=== PATIENT | female | born 1940 | race Caucasian/White ===

== ENCOUNTER 2016-08-28 17:31 | Inpatient (IN) | payer OTHER, MEDICARE ==
[~2016-08-28] VITALS: Ht 165.1 cm; Wt 70.5 kg
[~2016-08-28 17:31] MED LIST: /PANT40TA OR; ACET65TA OR; AMBI10TA OR; BACITAB PO; CELE40TA OR; DOXY100T OR; FLAG250T PO; FLAG500T PO; FLEXERIL PO; HYDR-3719 PO; LEVA750T7 PO; LEXA1TAB2 PO; LUNE2TAB23 PO; METO50TA7 PO; SIMV20TA2 PO; TRAM50TA2 OR; VICO5TAB OR; ZOCO40TA OR
[2016-08-28] MEDS ORDERED: NALOXONE INJ 0.4 MG/1 ML VIAL (J2310) IV STA (17:47)
[2016-08-28 18:22] LABS: BASO # 0.1 K/mm3 (0.0-0.2); BASO % 0.6 % (0.0-1.0); EOS # 0.3 K/mm3 (0.0-0.50); LARGE UNSTAINED CELL # 0.2 K/mm3 (0.0-0.4); LARGE UNSTAINED CELL % 1.8 % (0.0-4.0); LYMPH # 3.1 K/mm3 (1.5-4.5); LYMPH % 28.1 % (24.0-44.0); MEAN CORPUSCULAR HEMOGLOBIN 23.3 pg (27.0-33.0); MEAN CORPUSCULAR HGB CONC 30.5 g/dl (32.0-36.5); MEAN CORPUSCULAR VOLUME 76.2 fl (80.0-96.0); MONO # 0.8 K/mm3 (0.0-0.8); MONO % 7.9 % (0.0-5.0); NEUTROPHILS # 6.1 K/mm3 (1.8-7.7); NEUTROPHILS % 58.6 % (36.0-66.0); PLATELET COUNT, AUTOMATED 427 k/mm3 (150-450); WHITE BLOOD COUNT 10.4 K/mm3 (4.0-10.0)
[2016-08-28 18:24] LABS: ADD MORPHOLOGY? YES
[2016-08-28 18:25] LABS: ABG BASE EXCESS 0.6 (-2.0-2.0); ABG HCO3 24.6 MEQ/L (22.0-26.0); ABG PARTIAL PRESSURE O2 82.3 mmHg (75.0-100.0); ABG TOTAL CO2 25.8 MEQ/L (23.0-31.0); ABG pH (ARTERIAL) 7.441 UNITS (7.350-7.450)
[2016-08-28 18:30] LABS: METHADONE URINE NEGATIVE (NEGATIVE)
[2016-08-28] MEDS ORDERED: LORazepam 2 MG/ML VIAL (J2060) IV STA ×4 (18:35→19:45)
[2016-08-28] MEDS ORDERED: LORazepam 2 MG/ML VIAL (J2060) As Ordered ONE (18:36)
[2016-08-28 18:39] LABS: ALBUMIN 3.3 GM/DL (3.2-5.2); ALBUMIN/GLOBULIN RATIO 0.89 (1.00-1.93); ALKALINE PHOSPHATASE 80 U/L (45-117); ALT/SGPT 24 U/L (12-78); ANION GAP 5 MEQ/L (8-16); AST/SGOT 18 U/L (15-37); BILIRUBIN,DIRECT < 0.1 MG/DL (0.0-0.2); BILIRUBIN,TOTAL 0.2 MG/DL (0.2-1.0); BLOOD UREA NITROGEN 13 MG/DL (7-18); CALCIUM LEVEL 8.4 MG/DL (8.8-10.2); CARBON DIOXIDE LEVEL 29 MEQ/L (21-32); CHLORIDE LEVEL 106 MEQ/L (98-107); CREATININE FOR GFR 0.75 MG/DL (0.55-1.02); GLOMERULAR FILTRATION RATE > 60.0 (>39); GLUCOSE, FASTING 116 MG/DL (83-110); POTASSIUM SERUM 4.4 MEQ/L (3.5-5.1); SODIUM LEVEL 140 MEQ/L (136-145)
[2016-08-28] MEDS ORDERED: NS 1,000 ML IV ONE (19:00)
[2016-08-28 19:02] LABS: ANISOCYTOSIS 1+; HYPOCHROMASIA 1+; MICROCYTOSIS 1+
--- NOTE | 2016-08-28 19:10 | REPUSA ---
HISTORY: ALTERED MENTAL STATUS. Comparison is made to previous head CT examination dated 09/03/10. TECHNIQUE: Axial CT imaging of brain without contrast. DLP= 894.4 mGy-cm. FINDINGS: Ventricles and sulci are slightly prominent but within normal limits for this age group. T here is no evidence of intracranial mass, hemorrhage, mass effect, acute infarct, or abnormal extra-a xial fluid collection. No skull fracture or destructive bony lesion is seen at the skull base. IMPRESSION: Negative noncontrast head CT examination for this age group. Clinical correlation and followup imaging may be warranted as clinically indicated.
[2016-08-28] MEDS ORDERED: fentaNYL 100 MCG/2 ML INJECTION (J3010) IV ONE (19:30)
[2016-08-28] MEDS: HEPARIN SOD (PORCINE) 5000 UNITS/ML VIAL SC SCH (21:00)
[2016-08-28] MEDS ORDERED: ESZO1TAB3 PO (22:15)
[2016-08-28] MEDS ORDERED: ONDANSETRON 4MG/2ML VIAL (J2405) IV PRN (22:15)
[2016-08-28] MEDS ORDERED: METO1TAB32 PO (22:15)
[2016-08-28] MEDS ORDERED: NEXI40CA PO (22:17)
[2016-08-28] MEDS ORDERED: AMIT25TA PO (22:17)
[2016-08-28] MEDS ORDERED: AZEL0.1S3 (22:17)
[2016-08-28 22:21] LABS: INR 0.81
[2016-08-28 22:26] LABS: RETICULOCYTE ABSOLUTE ADVIA212 62 x10(9)/L (17-77)
[2016-08-28] MEDS ORDERED: ANEXSIA, NORCO 7.5MG/325MG TABLET(HYDROCODONE/APAP) PO PRN (22:30)
[2016-08-28 22:37] LABS: FERRITIN 5 NG/ML (8-252); PERCENT SATURATION 10.7 % (13.2-37.4); TOTAL IRON BINDING CAPACITY 440 UG/DL (250-450)
[2016-08-28 22:39] LABS: REASON FOR REVIEW ANEMIA / RBC MORPH
[2016-08-28] MEDS ORDERED: ISOVUE-370 76% 100ML VIAL (Q9967) As Ordered ONE (22:41)
[2016-08-28] MEDS ORDERED: MULTIVITAMIN -ADULT INJECTION 10 ML, THIAMINE INJection 100 MG, FOLIC ACID 1 MG in NS 1... IV ONE (23:00)
--- NOTE | 2016-08-28 23:40 | REPUSA ---
CT of the abdomen and pelvis without contrast Clinical statement: Pain. Technique: Multiple axial CT images were obtained from the base of the lungs to the floor of the pelv is utilizing 5 mm axial slices without administration of contrast. Coronal and sagittal reconstructio ns were also obtained. Comparison: 12/20/2014. Findings: Chest: The visualized lung bases are clear. Abdomen: The kidneys are normal in size bilaterally. There are multiple bilateral simple renal cysts. There is no evidence of hydronephrosis or nephrolithiasis. Small cysts are seen within the liver. Th e liver, spleen, pancreas, and adrenal glands are otherwise unremarkable. The aorta demonstrates norm al caliber and contour. There is no abdominal lymphadenopathy or ascites. Pelvis: The bowel is unremarkable, with no obstructive or inflammatory changes. The urinary bladder i s within normal limits. There is no pelvic lymphadenopathy or ascites. The other pelvic structures ap pear unremarkable. Bones: There are no suspicious osseous abnormalities seen. Levoscoliosis is appreciated. There is a c hronic anterior compression fracture T12. There is moderately severe degenerative disc disease at L2/ L3 and L5/S1. Impression: 1. No acute findings to explain the patient's pain. 2. Simple cyst within the kidneys bilaterally as well as the liver. 3. No obstructive or inflammatory bowel changes. 4. Stable chronic anterior compression fracture of T12. 5. Stable scoliosis a multilevel degenerative disc disease.
[2016-08-28] MEDS: LACTULOSE 20 GM/30 ML SYRUP UD PO SCH (23:55)
[2016-08-29] VITALS (7 sets, daily range): BP systolic 134–148; BP diastolic 66–98; O2SAT 94
--- NOTE | 2016-08-29 00:34 | HPE ---
DATE OF ADMISSION: 08/28/2016 PRIMARY CARE PROVIDER: Gwyn Medina MD. CHIEF COMPLAINT: Altered mental status. HISTORY OF PRESENT ILLNESS: This is a 76-year-old female patient with underlying medical history of hypertension, dyslipidemia, kidney stones, diverticulitis requiring colon resection, chronic back pain, depression, previous opiate dependence with also unintentional opioid overdose with CO2 retention in 2010 requiring intensive care unit (ICU) stay and intubation. Patient was found earlier around noontime by family, the patient's son. 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 Found by the son to be disoriented with slurred speech. As per son, patient occasionally has problem taking patient's medication. Has been taking a lot of sleep aids including Benadryl and [id number]-[id number] medication, as well as Percocet. Subsequently, patient was brought to the hospital. Last time patient's son saw the patient was on , which she was completely normal and patient worked on Tuesday. Subsequently, the patient was brought to the emergency room. Patient is alert and oriented times two in the emergency room. Initially given Narcan with worsening agitation. Subsequently, given Ativan, fentanyl and Valium with improvement. Patient is restless in the emergency room. Poison Control was contacted by emergency room provider, recommending benzodiazepine and keeping the patient for close monitoring. Subsequently, request for admission was made by emergency room provider for observation overnight. Family denies any alcohol abuse, any liver problems, kidney problems. Denies history of recreational drug use. ALLERGIES: CODEINE, PENICILLIN, and PENICILLIN CROSS REACTORS. PAST MEDICAL HISTORY: 1. Hypertension. 2. Dyslipidemia. 3. Kidney stones. 4. Diverticulitis requiring colon resection. 5. Chronic back pain. 6. Depression. 7. Previous opioid dependence. 8. CO2 retention with intubation 2010. PAST SURGICAL HISTORY: 1. Colon resection secondary to diverticulitis. 2. Cholecystectomy. 3. Back surgery. SOCIAL HISTORY: Patient does not drink or use illicit drugs. 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 Patient does not smoke. FAMILY HISTORY: Father with chronic obstructive pulmonary disease (COPD) and smoker. Sister with colon cancer. Patient recently had a colonoscopy. REVIEW OF SYSTEMS: 11-point review of systems negative except for reported some hip pain, which as per family has been chronic. Otherwise, patient denies any chest pain, pressure or discomfort. All other review of systems is negative, but review of systems is limited secondary to patient's mental status. HOME MEDICATION: - acetaminophen/hydrocodone 10/325 every 4 hours as needed - Lexapro 15 mg by mouth daily - Lunesta 10 mg by mouth nightly - Bacid two tablets by mouth twice a day - Levaquin 750 mg by mouth daily - metoprolol 50 mg by mouth daily - Zocor 20 mg by mouth every evening PHYSICAL EXAMINATION: VITAL SIGNS: Temperature 99, pulse 86, respirations 18, blood pressure 151/76, pulse oximetry 92% on room air. GENERAL: Patient alert and oriented times two, knows that she is at a hospital, knows her name, does not know what year it is. Follows simple commands, restless. HEENT: Normocephalic, atraumatic. PULMONARY: Bilaterally clear to auscultation. CARDIAC: Regular S1, S2. ABDOMEN: Obese, soft, nontender. No rebound. No guarding. EXTREMITIES: No clubbing, cyanosis or edema. NEUROLOGIC: Able to move all four extremities. Cranial nerves II-XII grossly intact. Seems to walk with a limp. LABORATORY: WBC 10.4, hemoglobin and hematocrit 8.7/28.6, platelets 427. Chemistry: Sodium 140, potassium 4.4, chloride 106, bicarbonate 29, BUN 13, creatinine 0.75. Lactic acid 0.9, ammonia level 74. TSH 1.72. Toxicology positive for opioids. Negative for alcohol, acetaminophen or salicylate. Urine toxicology negative. Colonoscopy done 2016 and esophagogastroduodenoscopy (EGD) done in 2016. Colonoscopy negative. EGD shows mild benign appearing esophageal stenosis, small hiatal hernia. ASSESSMENT AND PLAN: This is a 76-year-old female patient with underlying medical history of hypertension, dyslipidemia, kidney stones, diverticulitis requiring colonic resection, chronic back pain, depression, previous opioid dependence with CO2 retention, intubation secondary to opioid overdose 2010, admitted with altered mental status secondary likely to unintentional overdose. 1. Encephalopathy likely secondary to unintentional overdose. possible percoset vs Benadryl vs Lunesta Will monitor the patient overnight. Intravenous (IV) fluids. Valium as needed. EKG is appreciated to be sinus rhythm at 87, QTc 365. Followup telemetry. Neurologic checks. Sitter is at the bedside. Possible alternative etiology elevated ammonia level. Will give lactulose. Repeat ammonia level in the morning. Will keep the patient on Valium as needed. 2. Hypertension. Continue current medication. Monitor blood pressure. 3. Anemia. Patient with macrocytic anemia. Last year patient had normal esophagogastroduodenoscopy (EGD) and colonoscopy. Followup fecal occult. Followup anemia workup including iron studies, B12, folic acid, reticulocyte count, and peripheral smear. Transfuse as needed. Followup orthostatic vital signs. 4. Dyslipidemia. Continue statin. 5. History of kidney stones. Urinalysis appreciated. 6. Hip pain. Followup x-ray of the hip. 7. History of diverticulitis. Supportive care. Continue to monitor. 8. Depression. Continue current medication. Patient likely noncompliant given patient's urine toxicology is negative for tricyclics. The patient is supposed to be on that at home. 9. History of opioid dependence. Supportive care. Continue to monitor. Continue [place] as needed. 10. Deep venous thrombosis (DVT) prophylaxis. Heparin subcutaneously. DISPOSITION PLANNING: Pending clinical improvement. Physical therapy has been ordered. MTDD
[2016-08-29] MEDS: LACTULOSE 20 GM/30 ML SYRUP UD PO SCH ×4 (05:49→22:00)
[2016-08-29 06:21] LABS: MEAN CORPUSCULAR HEMOGLOBIN 22.6 pg (27.0-33.0); MEAN CORPUSCULAR HGB CONC 29.7 g/dl (32.0-36.5); MEAN CORPUSCULAR VOLUME 76.2 fl (80.0-96.0); RED CELL DISTRIBUTION WIDTH 17.1 % (11.5-14.5); WHITE BLOOD COUNT 13.9 K/mm3 (4.0-10.0)
[2016-08-29 06:43] LABS: ALBUMIN 3.5 GM/DL (3.2-5.2); ALBUMIN/GLOBULIN RATIO 0.83 (1.00-1.93); ALKALINE PHOSPHATASE 80 U/L (45-117); ALT/SGPT 23 U/L (12-78); ANION GAP 6 MEQ/L (8-16); AST/SGOT 23 U/L (15-37); BILIRUBIN,TOTAL 0.3 MG/DL (0.2-1.0); BLOOD UREA NITROGEN 8 MG/DL (7-18); CALCIUM LEVEL 8.6 MG/DL (8.8-10.2); CARBON DIOXIDE LEVEL 28 MEQ/L (21-32); CHLORIDE LEVEL 105 MEQ/L (98-107); CREATININE FOR GFR 0.66 MG/DL (0.55-1.02); GLOMERULAR FILTRATION RATE > 60.0 (>39); GLUCOSE, FASTING 99 MG/DL (83-110); POTASSIUM SERUM 3.8 MEQ/L (3.5-5.1); SODIUM LEVEL 139 MEQ/L (136-145); TOTAL PROTEIN 7.7 GM/DL (6.4-8.2)
--- NOTE | 2016-08-29 06:46 | ECGEPIP ---
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
--- NOTE | 2016-08-29 07:32 | REP ---
AP pelvis and bilateral hips: AP pelvis single view: Comparison is 10/13/2004. There is a fracture of the left ischium. Sacroiliac articulations and hip articulations are unremarkable. There is a surgical staple ring in the midline, not present previously. There is lumbar scoliosis convex left, unchanged. Impression: Left ischium fracture. Right hip two views: There is no fracture or dislocation. Mineralization and joint space are normal. There are calcifications or foreign bodies. Impression: Negative right hip. Left hip two views: There is a fracture of the left ischium, nondisplaced. No other fracture is identified. There is no dislocation. Mineralization is normal. No calcifications or foreign bodies. Impression: Left ischium, nondisplaced fracture. Signed by Dandre Santos MD 08/29/2016 07:23 A
[2016-08-29] MEDS: ASCORBIC ACID 250 MG TAB PO SCH ×2 (07:56→21:53)
[2016-08-29] MEDS: FERROUS SULFATE 325MG TAB PO SCH ×2 (07:56→21:52)
[2016-08-29] MEDS: SENOKOT S TAB PO SCH ×3 (07:56→21:53)
[2016-08-29] MEDS: PANTOPRAZOLE 40MG TAB (PROTONIX) PO SCH (07:57)
[2016-08-29] MEDS: ESCITALOPRAM OXALATE 10 MG TAB (LEXAPRO) PO SCH (07:57)
[2016-08-29] MEDS: METOPROLOL SUCC *XL* 25MG TAB (TopROL *XL*) PO SCH (07:59)
[2016-08-29] MEDS: HEPARIN SOD (PORCINE) 5000 UNITS/ML VIAL SC SCH ×2 (08:00→21:52)
[2016-08-29] MEDS: AZELASTINE 137MCG NASAL SPY 30 ML (ASTELIN) SCH ×2 (08:00→21:52)
--- NOTE | 2016-08-29 08:40 | REP ---
PORTABLE CHEST, ONE VIEW: HISTORY: Altered mental status. COMPARISON: 11/18/2015 The lungs are clear. The heart is normal in size. The pulmonary vasculature is normal in appearance. IMPRESSION: No acute disease. Signed by Antoni Elam MD 08/29/2016 08:43 A
[2016-08-29] MEDS ORDERED: KETOROLAC 30 MG/ML VIAL (J1885) IV ONE (11:00)
[2016-08-29] MEDS ORDERED: traMADol 50 MG TAB PO ONE (11:00)
--- NOTE | 2016-08-29 11:41 | ECGEPIP ---
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 Somewhat low voltages Subtle nonspecific ST segment scooping. No significant change from 08/28/16. Electronically Signed On 08-29-2016 11:41:37 EDT by Marito Rosa
--- NOTE | 2016-08-29 12:07 | IPN ---
DATE: 08/29/2016 The patient is seen and examined at the bedside. Chart has been reviewed. This morning, the patient complains of severe pain at the left hip and pain on her left ankle when she attempts to stand and bear weight on it. The patient is awake, alert and oriented times three. No other issues on telemetry. PHYSICAL EXAMINATION VITAL SIGNS: Temperature 97.8, pulse 89, respiratory rate 22, blood pressure 148/70, 93% on room air. GENERAL: Awake, alert, oriented to person and place. Answering questions appropriately. Following commands. Pupils are equal, round and reactive to light and accommodation. Extraocular muscles are intact. Normocephalic, atraumatic. LUNGS: Clear to auscultation. No wheezing, rales or rhonchi. HEART: S1, S2. Sinus rhythm. ABDOMEN: Soft, nontender, nondistended. Positive bowel sounds. EXTREMITIES: No pitting edema. MUSCULOSKELETAL: Significant discomfort with flexion and extension around the hip. Able to abduct and adduct but with difficulty. Motor function is 5/5. Negative straight leg raise test. No palpable effusion of the left ankle. Able to flex and extend but with pain on palpation of the left ankle. Laboratory data, microbiology and imaging studies have been reviewed. ASSESSMENT AND PLAN: This is a 76-year-old female with a history of hypertension, dyslipidemia, kidney stones, diverticulosis requiring colon resection, chronic back pain, depression, previous opiate dependence requiring intubation due to CO2 retention in 2010, presented to the emergency room after brought in by family due to altered mental status. According to the patient's son, she was disoriented with slurred speech, taking a lot of sleep aids, including Benadryl and over the counter medications, as well as Percocet. Acetaminophen level was normal. The patient was initially given Narcan with worsening agitation. Poison Control was contacted by the emergency room and recommended benzodiazepine and observation. During the hospital stay, the patient's mentation improved. She complained of left hip pain and pain along the posterior thigh. X-ray shows a left ischial fracture. Orthopedic surgery has been consulted. IMPRESSION: 1. Acute metabolic encephalopathy, most likely secondary to unintentional drug use with Benadryl and over the counter medications. Acetaminophen level was normal. Per Poison Control, IV fluid and Valium as needed. Sitter at the bedside. The patient also had possible hepatic encephalopathy with elevated ammonia level. Given Lactulose and currently stable at 23. 2. Acute left ischial fracture and left foot pain. Ortho consult. Pain control, activity per orthopedics. 3. History of opioid dependence. Discontinue opioids. Tramadol, Toradol. Pain management consult in the morning. 4. Hypertension, stable. Continue on metoprolol. 5. Hyperlipidemia. On Zocor. 6. Depression. On Lexapro.
--- NOTE | 2016-08-29 12:55 | REP ---
LEFT FOOT, FOUR VIEWS: HISTORY: Ankle pain. There is no acute fracture or dislocation. There is narrowing of the first metatarsophalangeal joint space with associated osteophyte formation. IMPRESSION: There is no acute fracture or dislocation. Signed by Antoni Elam MD 08/29/2016 12:57 P
--- NOTE | 2016-08-29 13:32 | CR ---
DATE OF CONSULTATION: 08/29/2016 SUBJECTIVE: I was consulted by Dr. Danielle to evaluate Ms. Campos for the left ischial fracture noted on her pelvic x-rays. Dr. Danielle informs that the patient was admitted for altered mental status and during the admission patient has been complaining of pain in her left side of her pelvis in the left hip joint area. She has been able to ambulate somewhat putting weight on the left side without much difficulty. At this time, the patient is complaining of pain isolated to the posterior and lateral pelvic and hip area. No neurovascular symptoms in the left lower extremity. She denies any pain into the left foot, leg, knee at this time. Denies any bilateral upper or right lower extremity pain at this time as well. OBJECTIVE: Awake and alert female in no acute distress, appropriately dressed, well nourished. Head is normocephalic, atraumatic. Focus examination of the left lower extremity there is no tenderness or swelling about the pelvis or the hip joint. Negative log roll. Negative heel tap. The skin in this area is grossly intact. The ipsilateral knee, leg, and foot is nontender and atraumatic with comfortable fairly fluid. Pain-free range of motion. She is able to stand up and put at least partial weight on the left lower extremity with some assistance at this time without much difficulty. CT of the abdomen and pelvis was reviewed. It shows significant motion artifact. Other findings as noted on the radiology report, which I do agree with is difficult to assess the ischial fracture on this film given the motion artifact. X-ray of the left hip shows a stable impacted appearing ischial fracture with no apparent displacement. Again, this is somewhat impacted and there appears to be some remodeling in this area possibly consistent with either the impaction or some healing indicating that this may be a somewhat chronic injury. X-rays of the left foot, obtained by Dr. Danielle, show significant first metatarsal phalangeal joint osteoarthritic changes with apparent remote fracture of an osteophyte or a corner of the intraarticular portion of the proximal phalanx of the great toe. Again, this does appear to be very chronic in nature. ASSESSMENT: Stable left ischial fracture on the left. PLAN: At this point, she can go ahead and start putting as much weight as tolerated on the left side at this point for this stable fracture. She is certainly going to require assistance given her altered mental status and she continues to be somewhat unsteady, and I would recommend physical therapy evaluate and treat her as well. Again, this is a stable fracture with no need for surgical intervention. At this time, I do recommend that she follows up with orthopedics in a week or two for repeat examination and x-rays and to document satisfactory healing. Otherwise, no further intervention indicated at this time.
[2016-08-29] MEDS: traMADol 50 MG TAB PO PRN ×2 (17:54→21:54)
[2016-08-29] MEDS: KETOROLAC 30 MG/ML VIAL (J1885) IV SCH (17:57)
[2016-08-29] MEDS ORDERED: AMITRIPTYLINE 25 MG TAB PO SCH (21:00)
[2016-08-29] MEDS ORDERED: SIMVASTATIN 20 MG TAB PO SCH (21:00)
[2016-08-30] MEDS: KETOROLAC 30 MG/ML VIAL (J1885) IV SCH ×3 (00:10→12:49)
[2016-08-30] MEDS: traMADol 50 MG TAB PO PRN ×2 (02:28→08:49)
[2016-08-30] MEDS: LACTULOSE 20 GM/30 ML SYRUP UD PO SCH ×2 (05:54→12:54)
[2016-08-30 06:00] VITALS: BP 133/70
[2016-08-30 06:37] LABS: MEAN CORPUSCULAR HEMOGLOBIN 22.4 pg (27.0-33.0); MEAN CORPUSCULAR HGB CONC 29.2 g/dl (32.0-36.5); MEAN CORPUSCULAR VOLUME 76.6 fl (80.0-96.0); WHITE BLOOD COUNT 8.5 K/mm3 (4.0-10.0)
[2016-08-30 06:54] LABS: ALBUMIN 3.1 GM/DL (3.2-5.2); ALBUMIN/GLOBULIN RATIO 0.89 (1.00-1.93); ALKALINE PHOSPHATASE 78 U/L (45-117); ALT/SGPT 17 U/L (12-78); ANION GAP 8 MEQ/L (8-16); AST/SGOT 16 U/L (15-37); BILIRUBIN,TOTAL 0.4 MG/DL (0.2-1.0); BLOOD UREA NITROGEN 7 MG/DL (7-18); CALCIUM LEVEL 8.2 MG/DL (8.8-10.2); CARBON DIOXIDE LEVEL 28 MEQ/L (21-32); CHLORIDE LEVEL 102 MEQ/L (98-107); CREATININE FOR GFR 0.61 MG/DL (0.55-1.02); GLOMERULAR FILTRATION RATE > 60.0 (>39); GLUCOSE, FASTING 92 MG/DL (83-110); MAGNESIUM LEVEL 2.4 MG/DL (1.8-2.4); POTASSIUM SERUM 3.3 MEQ/L (3.5-5.1); SODIUM LEVEL 138 MEQ/L (136-145); TOTAL PROTEIN 6.6 GM/DL (6.4-8.2)
[2016-08-30] MEDS ORDERED: MIRA3350 PO (07:49)
[2016-08-30] MEDS ORDERED: SENO8.6T10 PO (07:49)
[2016-08-30] MEDS ORDERED: ASCO25TA PO (07:49)
[2016-08-30] MEDS ORDERED: PANT40TA2 PO (07:49)
[2016-08-30] MEDS ORDERED: FERR1TAB8 PO (07:49)
[2016-08-30] MEDS: HEPARIN SOD (PORCINE) 5000 UNITS/ML VIAL SC SCH (08:46)
[2016-08-30 08:47] VITALS: BP 133/70
[2016-08-30] MEDS: AZELASTINE 137MCG NASAL SPY 30 ML (ASTELIN) SCH (08:47)
[2016-08-30] MEDS: PANTOPRAZOLE 40MG TAB (PROTONIX) PO SCH (08:47)
[2016-08-30] MEDS: ESCITALOPRAM OXALATE 10 MG TAB (LEXAPRO) PO SCH (08:47)
[2016-08-30] MEDS: METOPROLOL SUCC *XL* 25MG TAB (TopROL *XL*) PO SCH (08:47)
[2016-08-30] MEDS: ASCORBIC ACID 250 MG TAB PO SCH (08:48)
[2016-08-30] MEDS: FERROUS SULFATE 325MG TAB PO SCH (08:48)
[2016-08-30] MEDS: SENOKOT S TAB PO SCH ×2 (08:48→08:52)
[2016-08-30 10:17] LABS: VITAMIN B12 LEVEL 228 PG/ML
[2016-08-30 10:19] LABS: FOLATE 7.8 NG/ML
--- NOTE | 2016-09-22 10:33 | DSES ---
DATE OF ADMISSION: 08/30/2016 DATE OF DISCHARGE: 08/30/2016 CONSULTANTS DURING THIS ADMISSION: Dr. Cirilo Carlson, orthopedic surgery. PRIMARY DISCHARGE DIAGNOSES: Left ischial fracture. Acute metabolic encephalopathy secondary to unintentional drug overdose with Benadryl and [id number] medications. Left foot pain. History of opioid dependence. Hypertension. Hyperlipidemia. Depression. DISCHARGE MEDICATIONS: - vitamin C 250 mg twice a day - Senokot one tablet by mouth twice a day as needed - ferrous sulfate 325 mg twice a day - Protonix 40 mg daily - MiraLAX 17 grams daily - acetaminophen/hydrocodone one tablet every 6 hours - amitriptyline 25 mg every evening. - Azelastine two sprays twice a day - Lexapro 40 mg daily - eszopiclone 3 mg nightly - metoprolol 25 mg daily - simvastatin 20 mg nightly HOSPITAL COURSE: This is a 76-year-old female with a history of hypertension, dyslipidemia, kidney stones, diverticulosis, requiring colon resection, chronic back pain, depression, previous opiate dependence requiring intubation due to CO2 retention in 2010. She presented to the emergency room after being brought in by family due to altered mental status. According to the patient's son, she was disoriented with slurred speech, taking a lot of sleep aides including Benadryl and gupr-kfw-mholmez medications as well as Percocet. Her acetaminophen level was normal. The patient was initially given Narcan with worsening agitation. Poison control was contacted by the emergency room who recommended benzodiazepine and observation. During the hospital stay, the patient's mentation improved back to baseline. She complained of left hip pain and pain along the posterior thigh. X-ray showed a left ischial fracture. Orthopedic surgery, Dr. Carlson was consulted who recommended conservative management. It appears to be nonsurgical. The patient required a sitter at the bedside for the first 24 hours. Ammonia level was found to be slightly elevated and she was given lactulose with improvement in ammonia levels from 74 on admission to discharge of 34. The patient's mentation was back to baseline. Labs on discharge: White count 8.5, hemoglobin 8.6, hematocrit 29.6, platelet count 377. Sodium 138, potassium 3.2, chloride 102, bicarbonate 28, BUN 7, creatinine 0.61, glucose of 92. Ammonia level 34. Admission ammonia level 74. Arterial blood gas: pH 7.441, CO2 37, O2 82, bicarb 24.6. Urine culture 08/28/2016: No growth. IMAGING STUDIES: CT of the head 08/28/2016: Negative noncontrast CT for this age group. Chest X-ray: No acute disease. Hip X-ray: Left ischial fracture. Right hip, no fracture or dislocation. CT Abdomen and Pelvis: No acute findings. Simple cysts within the kidneys bilaterally as well as the liver. No obstructive or inflammatory bowel changes. Chronic anterior compression fracture at T12, stable scoliosis. Multilevel degenerative disc disease. Foot X-ray 08/29/2016 of the left foot: No acute fracture or dislocation. Time spent on discharge: 30 minutes. MTDD
== END 2016-08-30 14:55 | disposition home health service (06) | DRG 917 ==
LOC: M ED 17:31 → M ED INP 22:01 → M PCU 23:42 → M MS5PR 08-29 19:48 → OBSVTOIN 08-30 07:45
PROVIDERS: ADMIT Hospitalist; ATTEND General Practice
DX: T45.0X1A Poisoning by antiallergic and antiemetic drugs, accidental (unintentional), initial encounter (principal); G93.41 Metabolic encephalopathy; M48.58XA Collapsed vertebra, not elsewhere classified, sacral and sacrococcygeal region, initial encounter for fracture; F11.20 Opioid dependence, uncomplicated; K72.90 Hepatic failure, unspecified without coma; I10 Essential (primary) hypertension; F32.9 Major depressive disorder, single episode, unspecified; E78.5 Hyperlipidemia, unspecified; Z79.899 Other long term (current) drug therapy; K57.30 Diverticulosis of large intestine without perforation or abscess without bleeding; M54.5 Low back pain; D53.9 Nutritional anemia, unspecified

== ENCOUNTER → 2016-12-27 | Outpatient (CLI) | payer OTHER ==
[~2016-12-27] MED LIST changes: +AMIT25TA PO; +ASCO25TA PO; +AZEL0.1S3; +ESZO1TAB3 PO; +FERR1TAB8 PO; +METO1TAB32 PO; +MIRA3350 PO; +NEXI40CA PO; +PANT40TA2 PO; +SENO8.6T10 PO
[2016-12-27 19:20] LABS: BASO # 0.1 10^3/uL (0.0-0.2); BASO % 0.8 % (0.0-1.0); EOS # 0.3 10^3/uL (0.0-0.50); EOS % 3.4 % (0.0-3.0); IMMATURE GRANULOCYTE % 0.3 % (0-0); LYMPH # 2.1 10^3/uL (1.5-4.5); LYMPH % 21.1 % (24.0-44.0); MEAN CORPUSCULAR HGB CONC 26.4 g/dl (32.0-36.5); MEAN CORPUSCULAR VOLUME 75.7 fl (80.0-96.0); MONO # 0.4 10^3/uL (0.0-0.8); MONO % 4.5 % (0.0-5.0); NEUTROPHILS # 6.9 10^3/uL (1.8-7.7); NEUTROPHILS % 69.9 % (36.0-66.0); PLATELET COUNT, AUTOMATED 526 10^3/uL (150-450); RED CELL DISTRIBUTION WIDTH 18.6 % (11.5-14.5); WHITE BLOOD COUNT 9.8 10^3/uL (4.0-10.0)
[2016-12-27 19:27] LABS: FOLATE 9.9 NG/ML
[2016-12-27 21:22] LABS: PERCENT SATURATION 5.1 % (13.2-45.0)
== END ==
LOC: M WUC 11:55
PROVIDERS: ATTEND Family Medicine
DX: D64.9 Anemia, unspecified (principal)

== ENCOUNTER → 2017-09-08 | Outpatient (CLI) | payer OTHER ==
[2017-09-08 12:28] LABS: BASO # 0.1 10^3/uL (0.0-0.2); BASO % 1.1 % (0.0-1.0); EOS # 0.4 10^3/uL (0.0-0.50); EOS % 4.5 % (0.0-3.0); HEMATOCRIT 32.5 % (36.0-47.0); HEMOGLOBIN 8.8 g/dl (12.0-15.5); IMMATURE GRANULOCYTE % 0.6 % (0-3.0); LYMPH % 35.1 % (24.0-44.0); MEAN CORPUSCULAR HEMOGLOBIN 19.8 pg (27.0-33.0); MEAN CORPUSCULAR HGB CONC 27.1 g/dl (32.0-36.5); MONO # 0.4 10^3/uL (0.0-0.8); MONO % 4.9 % (0.0-5.0); NEUTROPHILS # 4.5 10^3/uL (1.8-7.7); NEUTROPHILS % 53.8 % (36.0-66.0); PLATELET COUNT, AUTOMATED 538 10^3/uL (150-450); RED BLOOD COUNT 4.45 10^6/uL (4.00-5.40); RED CELL DISTRIBUTION WIDTH 18.5 % (11.5-14.5); WHITE BLOOD COUNT 8.4 10^3/uL (4.0-10.0)
[2017-09-08 12:51] LABS: ALBUMIN/GLOBULIN RATIO 1.11 (1.00-1.93); ALKALINE PHOSPHATASE 69 U/L (45-117); ALT/SGPT 20 U/L (12-78); ANION GAP 10 MEQ/L (8-16); AST/SGOT 14 U/L (7-37); BILIRUBIN,TOTAL 0.5 MG/DL (0.2-1.0); BLOOD UREA NITROGEN 15 MG/DL (7-18); CALCIUM LEVEL 8.9 MG/DL (8.8-10.2); CARBON DIOXIDE LEVEL 27 MEQ/L (21-32); CHLORIDE LEVEL 104 MEQ/L (98-107); CHOLESTEROL LEVEL 215 MG/DL (<200); CHOLESTEROL RISK RATIO 3.467 (<5); CREATININE FOR GFR 0.82 MG/DL (0.55-1.30); FERRITIN 3 NG/ML (8-252); GLOMERULAR FILTRATION RATE > 60.0 (>39); GLUCOSE, FASTING 104 MG/DL (70-100); HDL CHOLESTEROL 62 MG/DL (>40); IRON (FE) 23 UG/DL (50-170); LDL CHOLESTEROL 112.8 MG/DL (<100); NON-HDL-C 153 MG/DL; PERCENT SATURATION 4.8 % (13.2-45.0); POTASSIUM SERUM 4.3 MEQ/L (3.5-5.1); SODIUM LEVEL 141 MEQ/L (136-145); TOTAL IRON BINDING CAPACITY 483 UG/DL (250-450); TOTAL PROTEIN 7.6 GM/DL (6.4-8.2); TRIGLYCERIDES LEVEL 201 MG/DL (<150)
== END ==
LOC: M WUC 10:59
DX: D64.9 Anemia, unspecified (principal); I10 Essential (primary) hypertension
CPT/HCPCS: 83550

== ENCOUNTER 2017-11-30 14:19 | Emergency (ER) | payer OTHER ==
[2017-11-30] MEDS: MORPHINE 2 MG/ML 1ML SYRINGE (J2270) IV (15:58)
[2017-11-30] MEDS: NS 500 ML IV (15:59)
[2017-11-30 16:05] LABS: BASO # 0.1 10^3/uL (0.0-0.2); BASO % 0.5 % (0.0-1.0); EOS # 0.2 10^3/uL (0.0-0.50); EOS % 2.3 % (0.0-3.0); HEMATOCRIT 32.4 % (36.0-47.0); IMMATURE GRANULOCYTE % 0.3 % (0-3.0); LYMPH # 2.3 10^3/uL (1.5-4.5); LYMPH % 24.9 % (24.0-44.0); MEAN CORPUSCULAR HGB CONC 27.8 g/dl (32.0-36.5); MEAN CORPUSCULAR VOLUME 75.5 fl (80.0-96.0); MONO # 0.7 10^3/uL (0.0-0.8); NEUTROPHILS # 5.9 10^3/uL (1.8-7.7); PLATELET COUNT, AUTOMATED 425 10^3/uL (150-450); RED BLOOD COUNT 4.29 10^6/uL (4.00-5.40); RED CELL DISTRIBUTION WIDTH 19.1 % (11.5-14.5); WHITE BLOOD COUNT 9.2 10^3/uL (4.0-10.0)
[2017-11-30 16:11] LABS: KETONE, URINE AUTO RFX NEGATIVE (NEGATIVE); MUCUS, URINE RFX SMALL (NEGATIVE); NITRITE, URINE AUTO RFX NEGATIVE (NEGATIVE); RBC, URINE AUTO RFX 4 /HPF (0-3); SPECIFIC GRAVITY UR AUTO RFX 1.019 (1.002-1.035); SQUAM EPITHELIAL CELL UR AURFX 0 /HPF (0-6); WBC, URINE AUTO RFX 8 /HPF (0-3)
[2017-11-30 16:23] LABS: ANION GAP 0 MEQ/L (8-16); BLOOD UREA NITROGEN 13 MG/DL (7-18); CARBON DIOXIDE LEVEL 35 MEQ/L (21-32); CHLORIDE LEVEL 103 MEQ/L (98-107); CREATININE FOR GFR 0.77 MG/DL (0.55-1.30); GLOMERULAR FILTRATION RATE > 60.0 (>39); GLUCOSE, FASTING 103 MG/DL (70-100); SODIUM LEVEL 138 MEQ/L (136-145)
[2017-11-30 18:43] LABS: LEUKOCYTE ESTERASE UR AUTO RFX TRACE (NEGATIVE)
== END 2017-11-30 17:30 | disposition home or self-care (01) ==
LOC: M ED 14:19
DX: K57.32 Diverticulitis of large intestine without perforation or abscess without bleeding (principal)
CPT/HCPCS: J2270

== ENCOUNTER → 2018-06-02 | Outpatient (CLI) | payer OTHER ==
[~2018-06-02] MED LIST changes: -/PANT40TA OR; -ASCO25TA PO; +CIPR-249 PO; -ESZO1TAB3 PO; +ESZO1TAB6 PO; -PANT40TA2 PO; +PANT40TA3 PO; +PROT1TAB2 OR; +VITA1TAB23 PO
[2018-06-02 17:13] LABS: ALBUMIN 3.6 GM/DL (3.2-5.2); ALT/SGPT 18 U/L (12-78); BILIRUBIN,TOTAL 0.5 MG/DL (0.2-1.0); BLOOD UREA NITROGEN 12 MG/DL (7-18); CALCIUM LEVEL 8.8 MG/DL (8.8-10.2); CARBON DIOXIDE LEVEL 26 MEQ/L (21-32); CHLORIDE LEVEL 101 MEQ/L (98-107); CREATININE FOR GFR 0.88 MG/DL (0.55-1.30); GLOMERULAR FILTRATION RATE > 60.0 (>39); GLUCOSE, FASTING 120 MG/DL (70-100); POTASSIUM SERUM 4.5 MEQ/L (3.5-5.1); SODIUM LEVEL 136 MEQ/L (136-145); TOTAL PROTEIN 7.3 GM/DL (6.4-8.2)
[2018-06-02 17:33] LABS: BASO # 0.1 10^3/uL (0.0-0.2); BASO % 1.2 % (0.0-1.0); EOS # 0.5 10^3/uL (0.0-0.50); EOS % 6.3 % (0.0-3.0); HEMATOCRIT 30.3 % (36.0-47.0); HEMOGLOBIN 7.9 g/dl (12.0-15.5); LYMPH # 2.2 10^3/uL (1.5-4.5); LYMPH % 29.3 % (24.0-44.0); MEAN CORPUSCULAR HGB CONC 26.1 g/dl (32.0-36.5); MONO # 0.5 10^3/uL (0.0-0.8); MONO % 5.9 % (0.0-5.0); NEUTROPHILS # 4.3 10^3/uL (1.8-7.7); NEUTROPHILS % 56.9 % (36.0-66.0); PLATELET COUNT, AUTOMATED 626 10^3/uL (150-450); RED BLOOD COUNT 4.15 10^6/uL (4.00-5.40); WHITE BLOOD COUNT 7.6 10^3/uL (4.0-10.0)
== END ==
LOC: M WUC 12:14
PROVIDERS: ATTEND Family Medicine
DX: I10 Essential (primary) hypertension (principal)

== ENCOUNTER 2018-07-08 16:58 | Emergency (ER) | payer MEDICARE, OTHER ==
[~2018-07-08] VITALS: Ht 152.4 cm; Wt 69.2 kg
[2018-07-08 17:42] LABS: BASO # 0.1 10^3/uL (0.0-0.2); BASO % 0.6 % (0.0-1.0); EOS # 0.1 10^3/uL (0.0-0.50); EOS % 0.9 % (0.0-3.0); HEMATOCRIT 31.4 % (36.0-47.0); HEMOGLOBIN 8.5 g/dl (12.0-15.5); LYMPH # 2.2 10^3/uL (1.5-4.5); LYMPH % 28.1 % (24.0-44.0); MEAN CORPUSCULAR HEMOGLOBIN 19.4 pg (27.0-33.0); MEAN CORPUSCULAR HGB CONC 27.1 g/dl (32.0-36.5); MEAN CORPUSCULAR VOLUME 71.5 fl (80.0-96.0); MONO # 0.6 10^3/uL (0.0-0.8); MONO % 7.3 % (0.0-5.0); NEUTROPHILS # 4.9 10^3/uL (1.8-7.7); NEUTROPHILS % 62.8 % (36.0-66.0); PLATELET COUNT, AUTOMATED 647 10^3/uL (150-450); RED BLOOD COUNT 4.39 10^6/uL (4.00-5.40); WHITE BLOOD COUNT 7.8 10^3/uL (4.0-10.0)
[2018-07-08] MEDS ORDERED: MORPHINE 4 MG/ML 1ML VIAL/SYRINGE (J2270) IV ONE (17:45)
[2018-07-08] MEDS ORDERED: ONDANSETRON 4MG/2ML VIAL (J2405) IV ONE (18:00)
[2018-07-08] MEDS ORDERED: VENL37.598 PO (18:00)
[2018-07-08 18:05] LABS: INR 0.92; PROTHROMBIN TIME 12.4 SECONDS (12.1-14.4)
[2018-07-08 18:06] LABS: PARTIAL THROMBOPLASTIN TIME 29.7 SECONDS (25.4-37.6)
[2018-07-08 18:09] LABS: ALBUMIN 3.2 GM/DL (3.2-5.2); ALT/SGPT 15 U/L (12-78); AMYLASE 14 U/L (25-115); BILIRUBIN,DIRECT < 0.1 MG/DL (0.0-0.2); BILIRUBIN,TOTAL 0.3 MG/DL (0.2-1.0); BLOOD UREA NITROGEN 12 MG/DL (7-18); CALCIUM LEVEL 8.8 MG/DL (8.8-10.2); CARBON DIOXIDE LEVEL 28 MEQ/L (21-32); CHLORIDE LEVEL 102 MEQ/L (98-107); CREATININE FOR GFR 0.67 MG/DL (0.55-1.30); GLOMERULAR FILTRATION RATE > 60.0 (>39); GLUCOSE, FASTING 120 MG/DL (70-100); LIPASE 74 U/L (73-393); POTASSIUM SERUM 3.7 MEQ/L (3.5-5.1); SODIUM LEVEL 138 MEQ/L (136-145); TOTAL PROTEIN 7.5 GM/DL (6.4-8.2)
[2018-07-08] MEDS ORDERED: ISOVUE-370 76% 100ML VIAL (Q9967) As Ordered ONE (19:12)
[2018-07-08] MEDS ORDERED: cefTRIAXone SOD 1 GM in D5W MINI-BAG PLUS 50 ML IV ONE (19:15)
--- NOTE | 2018-07-08 19:52 | REP ---
Clinical: Acute abdominal pain with history of diverticulitis. Technique: Axial contrast enhanced images from the lung bases to the pubic symphysis using 100 ml Isovue 370 intravenous contrast material with coronal and sagittal re-formations. Comparison: 11/30/2017, 08/28/2016. Findings: Lung bases are clear. Visualized heart and pericardium normal. Scattered hepatic hypodensities measuring up to 1.5 cm compatible with cysts and remain relatively stable. Spleen, pancreas, and bilateral adrenal glands are normal. Kidneys demonstrate mild cortical atrophic changes along with bilateral cysts up to 5 cm in the left kidney and bilateral nonobstructing intrarenal calculi up to 5.5 mm in the left kidney. Evidence for prior cholecystectomy with compensatory biliary ductal dilatation noted. The enteric system demonstrates small hiatal hernia. No evidence for bowel obstruction or acute inflammatory process. Colonic and sigmoid diverticulosis noted without acute diverticulitis. Normal terminal ileum identified in the right lower quadrant. Pelvis demonstrates actually collapsed normal bladder and age-appropriate uterus/adnexa. Evidence for prior partial resection involving the distal sigmoid colon noted. No pelvic fluid. No ascites. No free air. No significant adenopathy. Atherosclerotic changes to the aorta and vasculature without aneurysm. Musculoskeletal structures demonstrate chronic scoliosis and degenerative changes without focal osseous abnormality. Impression: 1. Hepatic and bilateral renal cysts. 2. Bilateral nonobstructing intrarenal calculi without acute urinary tract pathology. 3. Small hiatal hernia. 4. Colonic diverticulosis without acute diverticulitis and evidence for prior partial sigmoid resection. 5. Further chronic changes as described above. 6. No acute abdominopelvic pathology appreciated. Electronically Signed by Jett Pena MD 07/08/2018 07:44 P
[2018-07-08] MEDS ORDERED: NORCO, ANEXSIA 5/325MG TABLET (HYDROcodone/ACETAMINOPHEN) PO ONE (20:00)
[2018-07-08] MEDS ORDERED: KEFL500C17 PO (20:13)
[2018-07-08 20:31] VITALS: BP 153/67
--- NOTE | 2018-07-09 19:35 | ECGEPIP ---
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
== END 2018-07-08 20:42 | disposition home or self-care (01) ==
LOC: M ED 16:58
DX: N39.0 Urinary tract infection, site not specified (principal); R11.10 Vomiting, unspecified; I10 Essential (primary) hypertension; E78.5 Hyperlipidemia, unspecified; K21.9 Gastro-esophageal reflux disease without esophagitis; D64.9 Anemia, unspecified; K57.92 Diverticulitis of intestine, part unspecified, without perforation or abscess without bleeding; Z88.0 Allergy status to penicillin; Z88.5 Allergy status to narcotic agent; Z79.899 Other long term (current) drug therapy
CPT/HCPCS: 74177; 80048; 80076; 81001; 82150; 83605; 83690; 85025; 85610; 85730; 87086; 93005; 93041; 96365; 96375; 99285; J0696; J2270; J2405; Q9967

== ENCOUNTER → 2018-08-05 | Outpatient (CLI) | payer MEDICARE ==
[~2018-08-05] MED LIST changes: +KEFL500C17 PO; +VENL37.598 PO
[2018-08-05 14:24] LABS: BASO # 0.1 10^3/uL (0.0-0.2); BASO % 0.8 % (0.0-1.0); EOS # 0.1 10^3/uL (0.0-0.50); EOS % 1.1 % (0.0-3.0); HEMATOCRIT 32.7 % (36.0-47.0); HEMOGLOBIN 8.7 g/dl (12.0-15.5); LYMPH # 2.1 10^3/uL (1.5-4.5); LYMPH % 19.6 % (24.0-44.0); MEAN CORPUSCULAR HEMOGLOBIN 19.7 pg (27.0-33.0); MEAN CORPUSCULAR HGB CONC 26.6 g/dl (32.0-36.5); MEAN CORPUSCULAR VOLUME 74.1 fl (80.0-96.0); MONO # 0.7 10^3/uL (0.0-0.8); NEUTROPHILS # 7.6 10^3/uL (1.8-7.7); PLATELET COUNT, AUTOMATED 646 10^3/uL (150-450); RED BLOOD COUNT 4.41 10^6/uL (4.00-5.40); WHITE BLOOD COUNT 10.6 10^3/uL (4.0-10.0)
[2018-08-05 15:02] LABS: ALBUMIN 3.8 GM/DL (3.2-5.2); ALT/SGPT 17 U/L (12-78); BILIRUBIN,TOTAL 0.3 MG/DL (0.2-1.0); BLOOD UREA NITROGEN 16 MG/DL (7-18); CALCIUM LEVEL 9.3 MG/DL (8.8-10.2); CARBON DIOXIDE LEVEL 27 MEQ/L (21-32); CHLORIDE LEVEL 101 MEQ/L (98-107); CREATININE FOR GFR 0.78 MG/DL (0.55-1.30); GLOMERULAR FILTRATION RATE > 60.0 (>39); GLUCOSE, FASTING 107 MG/DL (70-100); POTASSIUM SERUM 4.2 MEQ/L (3.5-5.1); SODIUM LEVEL 139 MEQ/L (136-145); TOTAL PROTEIN 8.1 GM/DL (6.4-8.2)
--- NOTE | 2018-08-05 16:27 | REP ---
Acute abdominal series four views including upright PA chest, two abdomen supine views and single abdomen upright view: PA chest: Comparison is 11/18/2015. The lung turner are clear. Cardiac size is normal. The brandon, mediastinum and skeletal structures are unremarkable except for thoracic scoliosis convex right at the thoracolumbar junction, unchanged. There is no free subdiaphragmatic air. Impression: Scoliosis, otherwise negative PA chest. Abdomen, supine upright views: Comparison is the abdomen pelvis CT dated 07/08/2018. The bowel gas pattern is normal. There are right upper quadrant surgical clips. There is a surgical staple ring in the midline of the pelvis. There is lumbar scoliosis convex left. The bowel gas pattern is normal. Age indeterminate fracture of the left ischium is suspected. Correlate with clinical point tenderness. Impression: Suspect age indeterminate fracture of the left ischium. Correlate with clinical point tenderness. Normal bowel gas pattern. Lumbar scoliosis. Right upper quadrant surgical clips. Electronically Signed by Dandre Santos MD 08/05/2018 04:18 P
== END ==
LOC: M WUC 12:52
PROVIDERS: ATTEND Physician Assistant
DX: R10.814 Left lower quadrant abdominal tenderness (principal); M41.24 Other idiopathic scoliosis, thoracic region

== ENCOUNTER 2018-09-02 14:19 | Emergency (ER) | payer MEDICARE ==
[~2018-09-02] VITALS: Ht 152.4 cm; Wt 64.1 kg
[2018-09-02 15:13] LABS: BASO # 0.1 10^3/uL (0.0-0.2); BASO % 0.6 % (0.0-1.0); EOS # 0.1 10^3/uL (0.0-0.50); EOS % 1.4 % (0.0-3.0); HEMOGLOBIN 8.8 g/dl (12.0-15.5); LYMPH # 2.8 10^3/uL (1.5-4.5); LYMPH % 31.7 % (24.0-44.0); MEAN CORPUSCULAR HEMOGLOBIN 19.4 pg (27.0-33.0); MEAN CORPUSCULAR HGB CONC 26.7 g/dl (32.0-36.5); MEAN CORPUSCULAR VOLUME 72.7 fl (80.0-96.0); MONO # 0.6 10^3/uL (0.0-0.8); MONO % 6.9 % (0.0-5.0); NEUTROPHILS # 5.2 10^3/uL (1.8-7.7); NEUTROPHILS % 58.9 % (36.0-66.0); PLATELET COUNT, AUTOMATED 700 10^3/uL (150-450); RED BLOOD COUNT 4.54 10^6/uL (4.00-5.40); WHITE BLOOD COUNT 8.8 10^3/uL (4.0-10.0)
[2018-09-02 15:35] LABS: ALBUMIN 3.4 GM/DL (3.2-5.2); ALT/SGPT 15 U/L (12-78); BILIRUBIN,DIRECT < 0.1 MG/DL (0.0-0.2); BILIRUBIN,TOTAL 0.2 MG/DL (0.2-1.0); BLOOD UREA NITROGEN 15 MG/DL (7-18); CALCIUM LEVEL 9.4 MG/DL (8.8-10.2); CARBON DIOXIDE LEVEL 26 MEQ/L (21-32); CHLORIDE LEVEL 103 MEQ/L (98-107); CREATININE FOR GFR 0.98 MG/DL (0.55-1.30); GLOMERULAR FILTRATION RATE 58.6 (>39); GLUCOSE, FASTING 125 MG/DL (70-100); LIPASE 75 U/L (73-393); POTASSIUM SERUM 3.8 MEQ/L (3.5-5.1); SODIUM LEVEL 138 MEQ/L (136-145); TOTAL PROTEIN 8.4 GM/DL (6.4-8.2)
[2018-09-02] MEDS ORDERED: KETOROLAC 30 MG/ML VIAL (J1885) IV ONE (16:15)
[2018-09-02] MEDS ORDERED: NS 1,000 ML IV ONE (16:15)
[2018-09-02] MEDS ORDERED: ONDANSETRON 4MG/2ML VIAL (J2405) IV ONE (16:15)
[2018-09-02] MEDS: GASTROGRAFIN SOLUTION 30ML PO SCH ×2 (16:28→17:12)
[2018-09-02] MEDS ORDERED: ISOVUE-370 76% 100ML VIAL (Q9967) As Ordered ONE (17:50)
--- NOTE | 2018-09-02 19:25 | REPVR ---
EXAM: CT Abdomen and Pelvis With Contrast EXAM DATE/TIME: 09/02/2018 5:59 PM CLINICAL HISTORY: 78 years old, female; Abdominal pain; Localized; Left lower quadrant (llq); Additional info: Diffuse abd pain worse llq R/O diverticulitis ischemic bowel TECHNIQUE: Imaging protocol: Axial computed tomography images of the abdomen and pelvis with intravenous contrast. Coronal and sagittal reformatted images were created and reviewed. Radiation optimization: All CT scans at this facility use at least one of these dose optimization techniques: automated exposure control; mA and/or kV adjustment per patient size (includes targeted exams where dose is matched to clinical indication); or iterative reconstruction. Contrast material: ISOVUE 370; Contrast volume: 100 ml; Contrast route: IV; COMPARISON: CT ABD/PEL W/IV CONTRAST ONLY 07/08/2018 7:09 PM FINDINGS: Mediastinum: This a moderate size sliding hiatal hernia. Liver: 1 cm cyst in the anterior superior segment of the right lobe of the liver without change or previous. Lobulated cyst or 2 adjacent cysts in the lateral segment of the left lobe of the liver measuring 1.8 cm in maximum diameter without change from previous. 6 mm simple cyst in the medial segment of the left lobe of the liver without change. 5 mm low density lesion in the posterior inferior segment of the liver without change. There are scattered less than 3 mm low density lesions within the liver unchanged from previous. Gallbladder and bile ducts: Mild central intrahepatic ductal dilatation. 1 cm simple cyst within the caudate which is unchanged. Surgical clips in the gallbladder fossa. The gallbladder is absent. The common bile duct measures 1.3 cm in diameter Pancreas: Normal. No ductal dilation. Spleen: Normal. No splenomegaly. Adrenals: Normal. No mass. Kidneys and ureters: There are 5 low density lesions within the left kidney unchanged from previous. Largest is in the lower pole measuring 4.8 cm. There are multiple (at least 7 ) low-density lesion seen in the right kidney unchanged from previous. There are 2 nonobstructing calculi in the right kidney; one in the lower pole measuring 4.6 mm and a second in the midportion of the kidney measuring 4.1 mm.. In the lower pole of left kidney there are 2 nonobstructing renal calculi unchanged from previous measuring 7.5 mm and 4 mm respectively in maximum diameter. No hydronephrosis of either kidney Stomach and bowel: Mural thickening with pericolonic inflammatory change noted of the mid and distal descending colon extending into the proximal sigmoid colon. There are multiple diverticula. The appearance is consistent with diverticulitis. A suture line is noted within the colon at the level of the rectosigmoid junction Appendix: The appendix is not clearly seen as a separate structure. Intraperitoneal space: Normal. No free air. No significant fluid collection. Vasculature: Normal. No abdominal aortic aneurysm. Lymph nodes: Normal. No enlarged lymph nodes. Bladder: Unremarkable as visualized Reproductive: Unremarkable as visualized. Bones/joints: There is a levoscoliosis of the thoracolumbar spine. There is a grade 1 spondylolisthesis at L4-5 with 4 mm retrolisthesis of L5 with respect to L4. There is narrowing of the L2-3 disc space. Compression fractures are noted of T11 and T12 which are unchanged from previous. There is a healed fracture of the left inferior pubic ramus Soft tissues: There is a small umbilical hernia containing fat measuring 5 mm at its base. There is a small paraumbilical hernia containing fat located to the right of midline and measuring 4.8 mm at its base. No signs of strangulation IMPRESSION: 1. Diverticulitis involving the mid and distal descending extending into the proximal sigmoid colon. No abscess. No perforation. 2. Bilateral low density lesions noted within the kidneys and within the liver. Most are cysts. Some are too small to characterize fully. All are unchanged in size and number compared to the previous examinations. 3. Bilateral nonobstructing renal calculi without change. 4. Moderate size sliding hiatal hernia. Umbilical and periumbilical hernias containing fat. No signs of strangulation. No change. 5. Dilated common bile duct without change from previous. This may be related to previous cholecystectomy or stricture. No findings to suggest choledocholithiasis or neoplasm. COMMENT: Consistent with the [place]'s Incidental Findings Committee Report (J Am Jorge Radiol 2010): Unless the patient's specific circumstances suggest otherwise, any liver lesion 0.5 cm or less, any cystic kidney lesion less than 1.0 cm, and/or any adrenal lesion 1.0 cm or less not otherwise characterized in this report as possessing suspicious or indeterminate imaging features is/are highly likely to be benign and do not require follow-up imaging or biopsy. Electronically signed by: Lacie Csatillo On 09/02/2018 19:25:31 PM
[2018-09-02] MEDS ORDERED: METOCLOPRAMIDE INJ 10MG/2ML VIAL (J2765) IV ONE (19:45)
[2018-09-02] MEDS ORDERED: MORPHINE 2 MG/ML 1ML SYRINGE (J2270) IV ONE (19:45)
[2018-09-02] MEDS ORDERED: FLAG500T PO (20:54)
[2018-09-02] MEDS ORDERED: BACT800T5 PO (21:02)
[2018-09-02 21:13] VITALS: BP 155/75
--- NOTE | 2018-09-03 06:48 | ED PDOC ---
Post-Departure Follow-Up dr cruz faxed formal report of ct abd/p for fu Jena Blevins MD Sep 03, 2018 06:48
== END 2018-09-02 21:18 | disposition home or self-care (01) ==
LOC: M ED 14:19
DX: K57.32 Diverticulitis of large intestine without perforation or abscess without bleeding (principal); N20.0 Calculus of kidney; N28.89 Other specified disorders of kidney and ureter; K44.9 Diaphragmatic hernia without obstruction or gangrene; D50.9 Iron deficiency anemia, unspecified; R11.0 Nausea; R10.32 Left lower quadrant pain; I10 Essential (primary) hypertension; E78.5 Hyperlipidemia, unspecified; Z87.442 Personal history of urinary calculi; Z87.440 Personal history of urinary (tract) infections; Z87.448 Personal history of other diseases of urinary system; F32.9 Major depressive disorder, single episode, unspecified; K21.9 Gastro-esophageal reflux disease without esophagitis; Z90.49 Acquired absence of other specified parts of digestive tract; Z79.899 Other long term (current) drug therapy; Z88.0 Allergy status to penicillin; Z88.5 Allergy status to narcotic agent
CPT/HCPCS: 36415; 74177; 80048; 80076; 81001; 83605; 83690; 85025; 87086; 96361; 96374; 96375; 99284; J1885; J2270; J2405; J2765; Q9963; Q9967

== ENCOUNTER → 2018-10-19 | Outpatient (CLI) | payer MEDICARE ==
[~2018-10-19] MED LIST changes: +BACT800T5 PO
[2018-10-19 16:47] LABS: BASO # 0.1 10^3/uL (0.0-0.2); BASO % 0.9 % (0.0-1.0); EOS # 0.4 10^3/uL (0.0-0.5); EOS % 6.5 % (0.0-3.0); HEMATOCRIT 31.2 % (36.0-47.0); HEMOGLOBIN 8.3 g/dl (12.0-15.5); LYMPH # 2.4 10^3/uL (1.5-5.0); LYMPH % 35.1 % (24.0-44.0); MEAN CORPUSCULAR HEMOGLOBIN 20.3 pg (27.0-33.0); MEAN CORPUSCULAR HGB CONC 26.6 g/dl (32.0-36.5); MEAN CORPUSCULAR VOLUME 76.3 fl (80.0-96.0); MONO # 0.7 10^3/uL (0.0-0.8); MONO % 9.6 % (0.0-5.0); NEUTROPHILS # 3.2 10^3/uL (1.5-8.5); NEUTROPHILS % 47.6 % (36.0-66.0); PLATELET COUNT, AUTOMATED 415 10^3/uL (150-450); RED BLOOD COUNT 4.09 10^6/uL (4.00-5.40); WHITE BLOOD COUNT 6.8 10^3/uL (4.0-10.0)
[2018-10-19 17:10] LABS: ALBUMIN 3.4 GM/DL (3.2-5.2); ALT/SGPT 17 U/L (12-78); BILIRUBIN,TOTAL 0.4 MG/DL (0.2-1.0); BLOOD UREA NITROGEN 12 MG/DL (7-18); CALCIUM LEVEL 8.9 MG/DL (8.8-10.2); CARBON DIOXIDE LEVEL 31 MEQ/L (21-32); CHLORIDE LEVEL 106 MEQ/L (98-107); CREATININE FOR GFR 0.82 MG/DL (0.55-1.30); GLOMERULAR FILTRATION RATE > 60.0 (>39); GLUCOSE, FASTING 92 MG/DL (70-100); IRON (FE) 25 UG/DL (50-170); PERCENT SATURATION 6.2 % (13.2-45.0); POTASSIUM SERUM 4.3 MEQ/L (3.5-5.1); SODIUM LEVEL 142 MEQ/L (136-145); TOTAL IRON BINDING CAPACITY 405 UG/DL (250-450); TOTAL PROTEIN 6.5 GM/DL (6.4-8.2)
[2018-10-19 17:19] LABS: FOLATE 7.7 NG/ML; VITAMIN B12 LEVEL 251 PG/ML
== END ==
LOC: M WUC 14:54
PROVIDERS: ATTEND Internal Medicine Gastroenterology
DX: D50.9 Iron deficiency anemia, unspecified (principal)

== ENCOUNTER → 2018-11-02 | Outpatient (CLI) | payer MEDICARE ==
--- NOTE | 2018-11-03 07:52 | REP ---
MRI ABDOMEN WITHOUT CONTRAST: TECHNIQUE: Multiple sequences obtained in the axial and coronal planes. No IV contrast was administered. COMPARISON: Correlation made with prior CT 09/02/2018. The liver demonstrates multiple subcentimeter nodules which are hypointense on T1 and hyperintense on T2. These most likely represent small cysts correlating with the prior CT scan. A cluster of cysts in the left lobe has a maximum diameter of 1.5 cm. An oval septated cyst in the right lobe measures 1.3 cm. There is mild intrahepatic biliary dilatation. Common bile duct is somewhat dilated with a maximum diameter of 17 mL. However, it tapers normally distally with no definite evidence of choledocholithiasis or stricture. The spleen is normal in size with no abnormal signal. Adrenal glands are normal. No pancreatic mass or pancreatic ductal dilatation is seen. There are multiple bilateral renal cysts. There is no obvious renal neoplasm or solid nodule. The cysts are subcentimeter or 1 cm in diameter in the right kidney. They are larger and more numerous on the left. The largest cyst on the left is exophytic in the lower pole having a maximum diameter of 4.8 cm. There is no evidence of abdominal aortic aneurysm. There is no adenopathy or free fluid. There is a small hiatal hernia. IMPRESSION: Multiple small hyperintensities in the liver are most consistent with multiple small cysts. The patient has had a prior cholecystectomy. Prominent common bile duct measures 17 mm with no definite choledocholithiasis or stricture. Multiple bilateral renal cysts as described above. Small hiatal hernia. Electronically Signed by Dandre Garcia MD 11/03/2018 06:25 P
== END ==
LOC: M RAD 18:03
PROVIDERS: ATTEND Internal Medicine Gastroenterology
DX: R93.3 Abnormal findings on diagnostic imaging of other parts of digestive tract (principal)

== ENCOUNTER → 2018-11-09 | Outpatient (CLI) | payer MEDICARE ==
[~2018-11-09] MED LIST changes: +E-Z-PAQUE 96% w/w SUSP 176GM BTL As Ordered ONE
--- NOTE | 2018-11-09 16:25 | REP ---
Examination Requested: SBFT Reason For Exam: Iron-deficiency anemia Small Bowel Follow Through The procedure was performed by STEPHENIE Goodson, under the direct supervision of Dr. De León. The images were reviewed with Dr. De León. 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 The intestinal gas pattern appears normal. There is scoliosis as well as bilateral intrarenal nephrolithiasis. Surgical clips are present in the right upper quadrant. The barium was administered and the barium column was followed through the small bowel to the level of the terminal ileum. There is diverticulum of the third portion of the duodenum. Small bowel transit time was approximately 205 minutes. During fluoroscopy gentle palpation shows all loops are freely mobile and pliable. There are no fixed or angulated loops. The small bowel mucosal pattern is normal in course and caliber. There is no transition to suggest a partial small-bowel obstruction. Spot filming of the terminal ileum shows it to be unremarkable. Impression: 1. Diverticulum of the third portion of the duodenum. 2. Unremarkable small bowel follow-through. 3. Bilateral intrarenal nephrolithiasis. 0.6 minutes of fluoroscopy time was utilized for this procedure. Some fluoroscopic images are performed with last image hold technology. These images require no additional radiation. Reviewed by Etelvina De La Torre, STEPHENIE 11/09/2018 03:41 P Electronically Signed by Manuel De León MD 11/09/2018 04:16 P
== END ==
LOC: M RAD 07:52
PROVIDERS: ATTEND Internal Medicine Gastroenterology
DX: D50.9 Iron deficiency anemia, unspecified (principal)

== ENCOUNTER 2018-12-22 10:28 | Day surgery (SDC) | payer MEDICARE ==
[~2018-12-22] VITALS: Ht 149.9 cm; Wt 60.8 kg
[~2018-12-22 10:28] MED LIST changes: +AZEL1SPR3 NARES; -E-Z-PAQUE 96% w/w SUSP 176GM BTL As Ordered ONE; +MM S100C PO; +NS 1,000 ML IV ONE; +PROPOFOL 200 MG/20 ML VIAL As Ordered ONE
[2018-12-22] MEDS ORDERED: LIDOCAINE 2% INJ 100 MG/5 ML SDV (FOR ANES.) As Ordered ONE (10:50)
[2018-12-22] MEDS ORDERED: fentaNYL 100 MCG/2 ML INJECTION (J3010) As Ordered ONE (11:21)
--- NOTE | 2018-12-22 12:05 | ROOR ---
Patient Name: Brandi Campos Procedure Date: 12/22/2018 11:52 AM Date of : 1940 Age: 78 Room: [facility] Gender: Female Note Status: Finalized Procedure: Upper GI endoscopy Indications: Iron deficiency anemia Providers: Grabiel WESTON MD Referring MD: Gwyn Medina MD Requesting Provider: Medicines: Monitored Anesthesia Care Complications: No immediate complications. Procedure: Pre-Anesthesia Assessment: - The heart rate, respiratory rate, oxygen saturations, blood pressure, adequacy of pulmonary ventilation, and response to care were monitored throughout the procedure. The Endoscope was introduced through the mouth, and advanced to the third part of duodenum. The upper GI endoscopy was accomplished without difficulty. The patient tolerated the procedure well. Findings: The examined esophagus was normal. A medium-sized hiatal hernia was present. The entire examined stomach was normal. The examined duodenum was normal. Biopsies for histology were taken with a cold forceps for evaluation of celiac disease. Impression: - Normal esophagus. - Normal stomach with a small/medium-sized hiatal hernia. - Normal examined duodenum. Biopsied. Recommendation: - Follow an antireflux regimen. - Observe patient's clinical course. Grabiel Weston MD Grabiel WESTON MD 12/22/2018 12:04:44 PM Electronically signed by Grabiel WESTON MD Number of Addenda: 0 Note Initiated On: 12/22/2018 11:52 AM Estimated Blood Loss: Estimated blood loss: none.
--- NOTE | 2018-12-22 12:21 | ROOR ---
Patient Name: Brandi Campos Procedure Date: 12/22/2018 11:53 AM Date of : 1940 Age: 78 Room: [facility] Gender: Female Note Status: Finalized Procedure: Colonoscopy Indications: Iron deficiency anemia Providers: Grabiel WESTON MD Referring MD: Gwyn Medina MD Requesting Provider: Medicines: Monitored Anesthesia Care Complications: No immediate complications. Procedure: Pre-Anesthesia Assessment: - The heart rate, respiratory rate, oxygen saturations, blood pressure, adequacy of pulmonary ventilation, and response to care were monitored throughout the procedure. The Colonoscope was introduced through the anus and advanced to 10 cm into the ileum. The colonoscopy was performed without difficulty. The patient tolerated the procedure well. The quality of the bowel preparation was good. Findings: The perianal and digital rectal examinations were normal. Two sessile polyps were found in the sigmoid colon. The polyps were diminutive in size. These polyps were removed with a cold snare. Resection and retrieval were complete. Mild sigmoid diverticulosis and small internal hemorrhoids. The exam was otherwise normal throughout the examined colon. The terminal ileum appeared normal. Impression: - Two diminutive polyps in the sigmoid colon, removed with a cold snare. Resected and retrieved. - Mild sigmoid diverticulosis and small internal hemorrhoids. - The colon is otherwise normal. - The examined portion of the ileum was normal. Recommendation: - To visualize the small bowel, perform video capsule endoscopy at appointment to be scheduled. - Repeat colonoscopy in 5 years for surveillance. - My office will call you in the next few days to set you up for this study/exam. Grabiel Weston MD Grabiel WESTON MD 12/22/2018 12:20:33 PM Electronically signed by Grabiel WESTON MD Number of Addenda: 0 Note Initiated On: 12/22/2018 11:53 AM Estimated Blood Loss: Estimated blood loss: none.
[2018-12-22 12:50] VITALS: BP 164/85
== END 2018-12-22 12:56 | disposition home or self-care (01) ==
LOC: M OPP 10:28
PROVIDERS: ATTEND Internal Medicine Gastroenterology
DX: K57.30 Diverticulosis of large intestine without perforation or abscess without bleeding (principal); K64.8 Other hemorrhoids; D50.9 Iron deficiency anemia, unspecified; K44.9 Diaphragmatic hernia without obstruction or gangrene; Z88.0 Allergy status to penicillin; Z88.8 Allergy status to other drugs, medicaments and biological substances
CPT/HCPCS: 43239; 45385; 88305; J3010

== ENCOUNTER → 2019-03-09 | Outpatient (CLI) | payer MEDICARE ==
[~2019-03-09] MED LIST changes: -NS 1,000 ML IV ONE; -PROPOFOL 200 MG/20 ML VIAL As Ordered ONE; -SIMV20TA2 PO; +SIMV20TA22 PO
[2019-03-09 12:52] LABS: HEMOGLOBIN 12.8 g/dl (12.0-15.5); MEAN CORPUSCULAR HEMOGLOBIN 25.8 pg (27.0-33.0); MEAN CORPUSCULAR HGB CONC 29.1 g/dl (32.0-36.5); MEAN CORPUSCULAR VOLUME 88.5 fl (80.0-96.0); PLATELET COUNT, AUTOMATED 318 10^3/uL (150-450); RED BLOOD COUNT 4.97 10^6/uL (4.00-5.40)
[2019-03-09 12:59] LABS: ALBUMIN 3.7 GM/DL (3.2-5.2); ALT/SGPT 19 U/L (12-78); BILIRUBIN,TOTAL 0.5 MG/DL (0.2-1.0); BLOOD UREA NITROGEN 12 MG/DL (7-18); CALCIUM LEVEL 9.3 MG/DL (8.8-10.2); CARBON DIOXIDE LEVEL 33 MEQ/L (21-32); CHLORIDE LEVEL 105 MEQ/L (98-107); CREATININE FOR GFR 0.78 MG/DL (0.55-1.30); FERRITIN 6 NG/ML (8-252); GLOMERULAR FILTRATION RATE > 60.0 (>39); GLUCOSE, FASTING 103 MG/DL (70-100); IRON (FE) 56 UG/DL (50-170); PERCENT SATURATION 13.7 % (13.2-45.0); POTASSIUM SERUM 4.1 MEQ/L (3.5-5.1); SODIUM LEVEL 140 MEQ/L (136-145); TOTAL IRON BINDING CAPACITY 408 UG/DL (250-450); TOTAL PROTEIN 7.5 GM/DL (6.4-8.2)
== END ==
LOC: M WUC 09:12
PROVIDERS: ATTEND Family Medicine
DX: D64.9 Anemia, unspecified (principal); I10 Essential (primary) hypertension

== ENCOUNTER → 2019-05-29 | Outpatient (REF) | payer MEDICARE ==
[2019-05-29 21:54] LABS: APPEARANCE, URINE TURBID (CLEAR); BACTERIA, URINE AUTO NEGATIVE (NEGATIVE); BILIRUBIN, URINE AUTO NEGATIVE (NEGATIVE); BLOOD, URINE BLOOD 3+ (NEGATIVE); COLOR, URINE YELLOW (YELLOW); GLUCOSE, URINE (UA) AUTO 1+ mg/dL (NEGATIVE); KETONE, URINE AUTO TRACE mg/dL (NEGATIVE); LEUKOCYTE ESTERASE, URINE AUTO NEGATIVE (NEGATIVE); NITRITE, URINE AUTO NEGATIVE (NEGATIVE); PROTEIN, URINE AUTO 2+ mg/dL (NEGATIVE); RBC, URINE AUTO TNTC /HPF (0-3); SPECIFIC GRAVITY URINE AUTO 1.027 (1.002-1.035); SQUAMOUS EPITHELIAL CELL UR AU 0 /HPF (0-6); UROBILINOGEN, URINE AUTO 0.2 mg/dL (0.0-2.0); WBC, URINE AUTO TNTC /HPF (0-3)
== END ==
LOC: M LAB REF 21:27
PROVIDERS: ATTEND Family Medicine
DX: R31.9 Hematuria, unspecified (principal)

== ENCOUNTER → 2019-10-12 | Outpatient (CLI) | payer MEDICARE ==
[~2019-10-12] MED LIST changes: +ASCO250T20 PO; +PANT40TA29 PO; -PANT40TA3 PO; -VITA1TAB23 PO
[2019-10-12 17:43] LABS: ALBUMIN 3.8 GM/DL (3.2-5.2); BILIRUBIN,TOTAL 0.5 MG/DL (0.2-1.0); CALCIUM LEVEL 9.4 MG/DL (8.8-10.2); CREATININE FOR GFR 0.98 MG/DL (0.55-1.30); GLOMERULAR FILTRATION RATE 58.4 (>39); PERCENT SATURATION 17.8 % (13.2-45.0); POTASSIUM SERUM 4.2 MEQ/L (3.5-5.1); TOTAL PROTEIN 7.6 GM/DL (6.4-8.2)
[2019-10-12 17:47] LABS: HEMATOCRIT 44.6 % (36.0-47.0); HEMOGLOBIN 13.8 g/dl (12.0-15.5); MEAN CORPUSCULAR HEMOGLOBIN 28.9 pg (27.0-33.0); MEAN CORPUSCULAR HGB CONC 30.9 g/dl (32.0-36.5); MEAN CORPUSCULAR VOLUME 93.5 fl (80.0-96.0); PLATELET COUNT, AUTOMATED 325 10^3/uL (150-450); RED BLOOD COUNT 4.77 10^6/uL (4.00-5.40); WHITE BLOOD COUNT 9.9 10^3/uL (4.0-10.0)
== END ==
LOC: M WUC 13:43
PROVIDERS: ATTEND Family Medicine
DX: D64.9 Anemia, unspecified (principal); I10 Essential (primary) hypertension

== ENCOUNTER → 2021-06-29 | Outpatient (CLI) | payer MEDICARE ==
[~2021-06-29] MED LIST changes: -AMIT25TA PO; +AMIT25TA17 PO
[2021-06-29 18:37] LABS: ALBUMIN 3.6 GM/DL (3.2-5.2); ALT/SGPT 15 U/L (12-78); BILIRUBIN,TOTAL 0.3 MG/DL (0.2-1.0); BLOOD UREA NITROGEN 20 MG/DL (7-18); CALCIUM LEVEL 9.7 MG/DL (8.8-10.2); CARBON DIOXIDE LEVEL 29 MEQ/L (21-32); CHLORIDE LEVEL 99 MEQ/L (98-107); GLOMERULAR FILTRATION RATE > 60.0 (>32); GLUCOSE, FASTING 117 MG/DL (70-100); POTASSIUM SERUM 4.4 MEQ/L (3.5-5.1); SODIUM LEVEL 137 MEQ/L (136-145); TOTAL PROTEIN 7.7 GM/DL (6.4-8.2)
[2021-06-29 18:51] LABS: HEMATOCRIT 41.4 % (36.0-47.0); HEMOGLOBIN 12.1 g/dl (12.0-15.5); MEAN CORPUSCULAR HEMOGLOBIN 25.5 pg (27.0-33.0); MEAN CORPUSCULAR HGB CONC 29.2 g/dl (32.0-36.5); MEAN CORPUSCULAR VOLUME 87.3 fl (80.0-96.0); PLATELET COUNT, AUTOMATED 444 10^3/uL (150-450); RED BLOOD COUNT 4.74 10^6/uL (4.00-5.40); WHITE BLOOD COUNT 8.6 10^3/uL (4.0-10.0)
== END ==
LOC: M WUC 11:14
PROVIDERS: ATTEND Family Medicine
DX: M54.9 Dorsalgia, unspecified (principal); I10 Essential (primary) hypertension; Z87.81 Personal history of (healed) traumatic fracture; M41.9 Scoliosis, unspecified

== ENCOUNTER → 2021-07-10 | Outpatient (CLI) | payer MEDICARE | LOC: M WUC 11:36 | PROVIDERS: ATTEND Family Medicine | DX: R07.9 Chest pain, unspecified (principal) ==

== ENCOUNTER → 2021-07-28 | Outpatient (CLI) | payer MEDICARE | LOC: M PLALAB 14:53 | PROVIDERS: ATTEND Family Medicine | DX: M48.061 Spinal stenosis, lumbar region without neurogenic claudication (principal); M51.35 Other intervertebral disc degeneration, thoracolumbar region; K59.00 Constipation, unspecified; N20.0 Calculus of kidney; M48.54XA Collapsed vertebra, not elsewhere classified, thoracic region, initial encounter for fracture ==

== ENCOUNTER → 2021-09-21 | Outpatient (CLI) | payer MEDICARE ==
[~2021-09-21] MED LIST changes: +CITA40TA7 PO; +DICL50TAB PO; +FENT1PAT25 TD; +LYRI75CA PO
== END ==
LOC: M LABSMTC 09:52
PROVIDERS: ATTEND Ophthalmology
DX: Z01.812 Encounter for preprocedural laboratory examination (principal); Z20.822 Contact with and (suspected) exposure to COVID-19

== ENCOUNTER 2021-09-25 08:35 | Day surgery (SDC) | payer MEDICARE ==
[~2021-09-25] VITALS: Ht 152.4 cm; Wt 61.7 kg
[~2021-09-25 08:35] MED LIST changes: +LIDOCAINE 1% SDV 5ML VIAL As Ordered ONE; +PROPARACAINE 0.5% OPHTH SOL 15ML OS ONE
[2021-09-25] MEDS: TROPICAMIDE 1% OPHTH SOLN 2ML OS SCH ×2 (09:12→09:45)
[2021-09-25] MEDS: OFLOXACIN 0.3 % (OCUFLOX) OPTH SOL 5ML OS SCH ×2 (09:12→09:45)
[2021-09-25] MEDS: PHENYLEPHRINE 2.5% OPHTH SOL 2ML OS SCH ×2 (09:12→09:45)
[2021-09-25] MEDS ORDERED: POLYTRIM OPTH DROPS 10ML As Ordered ONE (10:19)
[2021-09-25] MEDS ORDERED: BSS IRR 500ML/OMIDRIA 4ML IRR BAG (OR ONLY) As Ordered ONE (10:19)
[2021-09-25] MEDS ORDERED: fentaNYL 100 MCG/2 ML INJECTION As Ordered ONE (10:33)
[2021-09-25] MEDS ORDERED: MIDAZOLAM INJ 2MG/2ML VIAL (J2250 PER 1MG) As Ordered ONE (10:34)
[2021-09-25 11:02] VITALS: BP 156/68
== END 2021-09-25 11:25 | disposition home or self-care (01) ==
LOC: M SDC 08:35
PROVIDERS: ATTEND Ophthalmology
DX: H25.12 Age-related nuclear cataract, left eye (principal); I10 Essential (primary) hypertension; E78.5 Hyperlipidemia, unspecified; K21.9 Gastro-esophageal reflux disease without esophagitis; K57.92 Diverticulitis of intestine, part unspecified, without perforation or abscess without bleeding; F32.A Depression, unspecified; Z79.899 Other long term (current) drug therapy; Z88.0 Allergy status to penicillin; Z88.8 Allergy status to other drugs, medicaments and biological substances
CPT/HCPCS: 66984; J1097; J2250; J3010; V2632

== ENCOUNTER → 2021-11-10 | Outpatient (CLI) | payer MEDICARE ==
[~2021-11-10] MED LIST changes: -LIDOCAINE 1% SDV 5ML VIAL As Ordered ONE; -PROPARACAINE 0.5% OPHTH SOL 15ML OS ONE
== END ==
LOC: M LABSMTC 10:16
PROVIDERS: ATTEND Anesthesiology
DX: Z01.812 Encounter for preprocedural laboratory examination (principal); Z20.822 Contact with and (suspected) exposure to COVID-19

== ENCOUNTER 2021-11-13 11:02 | Day surgery (SDC) | payer MEDICARE ==
[~2021-11-13] VITALS: Ht 149.9 cm; Wt 65.7 kg
[~2021-11-13 11:02] MED LIST changes: +ACETYLCHOLINE OPHTH SOLN 1% 2ML (MIOCHOL-E) As Ordered ONE; +CEFUROXIME 1MG/0.1ML INTRACAMERAL INJ As Ordered ONE; +LIDOCAINE 1% SDV 5ML VIAL As Ordered ONE; +OFLOXACIN 0.3 % (OCUFLOX) OPTH SOL 5ML OD SCH; +PHENYLEPHRINE 2.5% OPHTH SOL 2ML OD SCH; +PROPARACAINE 0.5% OPHTH SOL 15ML OD ONE; +TROPICAMIDE 1% OPHTH SOLN 2ML OD SCH
[2021-11-13] MEDS ORDERED: BSS IRR 500ML/OMIDRIA 4ML IRR BAG (OR ONLY) ONE (11:03)
[2021-11-13] MEDS ORDERED: MIDAZOLAM INJ 2MG/2ML VIAL (J2250 PER 1MG) As Ordered ONE (13:11)
[2021-11-13] MEDS ORDERED: fentaNYL 100 MCG/2 ML INJECTION As Ordered ONE (13:13)
[2021-11-13 14:25] VITALS: BP 169/85
== END 2021-11-13 14:35 | disposition home or self-care (01) ==
LOC: M SDC 11:02
PROVIDERS: ATTEND Ophthalmology
DX: H25.11 Age-related nuclear cataract, right eye (principal); H59.211 Accidental puncture and laceration of right eye and adnexa during an ophthalmic procedure; I10 Essential (primary) hypertension; E78.5 Hyperlipidemia, unspecified; F32.A Depression, unspecified; Z79.899 Other long term (current) drug therapy; K57.92 Diverticulitis of intestine, part unspecified, without perforation or abscess without bleeding; K21.9 Gastro-esophageal reflux disease without esophagitis; R51.9 Headache, unspecified; Z88.0 Allergy status to penicillin; Z88.8 Allergy status to other drugs, medicaments and biological substances
CPT/HCPCS: 66984; 67005; J0697; J1097; J2250; J3010; V2632

== ENCOUNTER → 2022-04-08 | Outpatient (CLI) | payer MEDICARE ==
[~2022-04-08] MED LIST changes: -ACETYLCHOLINE OPHTH SOLN 1% 2ML (MIOCHOL-E) As Ordered ONE; -CEFUROXIME 1MG/0.1ML INTRACAMERAL INJ As Ordered ONE; -LIDOCAINE 1% SDV 5ML VIAL As Ordered ONE; -OFLOXACIN 0.3 % (OCUFLOX) OPTH SOL 5ML OD SCH; -PHENYLEPHRINE 2.5% OPHTH SOL 2ML OD SCH; -PROPARACAINE 0.5% OPHTH SOL 15ML OD ONE; -TROPICAMIDE 1% OPHTH SOLN 2ML OD SCH
[2022-04-08 16:53] LABS: ALBUMIN 3.5 G/DL (3.2-5.2); CALCIUM LEVEL 8.9 MG/DL (8.3-10.6); CREATININE FOR GFR 0.99 MG/DL (0.55-1.30); GLOMERULAR FILTRATION RATE 57.5 (>32); PHOSPHORUS LEVEL 3.7 MG/DL (2.4-5.1); POTASSIUM SERUM 4.3 MMOL/L (3.5-5.1)
== END ==
LOC: M WUC 14:44
PROVIDERS: ATTEND Nurse Practitioner Family
DX: M54.16 Radiculopathy, lumbar region (principal)

== ENCOUNTER → 2022-05-17 | Outpatient (CLI) | payer MEDICARE ==
[~2022-05-17] MED LIST changes: +PROHANCE 279.3MG/ML 5ML VIAL As Ordered ONE
== END ==
LOC: M RAD 14:36
PROVIDERS: ATTEND Nurse Practitioner Family
DX: M51.16 Intervertebral disc disorders with radiculopathy, lumbar region (principal); M48.54XA Collapsed vertebra, not elsewhere classified, thoracic region, initial encounter for fracture; M48.55XA Collapsed vertebra, not elsewhere classified, thoracolumbar region, initial encounter for fracture; N28.1 Cyst of kidney, acquired
CPT/HCPCS: 72158; A9576

== ENCOUNTER 2022-05-28 22:18 | Inpatient (IN) | payer MEDICARE ==
[~2022-05-28] VITALS: Ht 152.4 cm; Wt 60.0 kg
[~2022-05-28 22:18] MED LIST changes: -PROHANCE 279.3MG/ML 5ML VIAL As Ordered ONE
[2022-05-28] MEDS ORDERED: AMIT25TA17 PO (22:46)
[2022-05-28] MEDS ORDERED: ONDA-83 PO (22:46)
[2022-05-29 00:45] LABS: INR 0.93; PROTHROMBIN TIME 12.7 SECONDS (12.5-14.5)
[2022-05-29 00:47] LABS: BASO # 0.1 10^3/uL (0.0-0.2); BASO % 0.5 % (0.0-1.0); EOS # 0.1 10^3/uL (0.0-0.5); EOS % 0.4 % (0.0-3.0); HEMOGLOBIN 9.1 g/dl (12.0-15.5); LYMPH # 2.2 10^3/uL (1.5-5.0); LYMPH % 12.8 % (24.0-44.0); MEAN CORPUSCULAR HGB CONC 28.4 g/dl (32.0-36.5); MEAN CORPUSCULAR VOLUME 70.3 fl (80.0-96.0); MONO # 0.8 10^3/uL (0.0-0.8); MONO % 4.8 % (2.0-8.0); NEUTROPHILS # 13.8 10^3/uL (1.5-8.5); NEUTROPHILS % 79.7 % (36.0-66.0); PLATELET COUNT, AUTOMATED 566 10^3/uL (150-450); RED BLOOD COUNT 4.55 10^6/uL (4.00-5.40); WHITE BLOOD COUNT 17.3 10^3/uL (4.0-10.0)
[2022-05-29 00:57] LABS: LIPASE 21 U/L (12-53)
[2022-05-29 00:59] LABS: ALBUMIN 3.1 G/DL (3.2-5.2); ALKALINE PHOSPHATASE 85 U/L (46-116); ALT/SGPT 11 U/L (7.0-40); AST/SGOT 12 U/L (<34); BILIRUBIN,DIRECT 0.1 MG/DL (<0.4); BILIRUBIN,TOTAL 0.4 MG/DL (0.3-1.2); BLOOD UREA NITROGEN 15 MG/DL (9-23); CALCIUM LEVEL 8.6 MG/DL (8.3-10.6); CARBON DIOXIDE LEVEL 25 MMOL/L (20-31); CHLORIDE LEVEL 101 MMOL/L (98-107); CREATININE FOR GFR 0.62 MG/DL (0.55-1.30); GLOMERULAR FILTRATION RATE > 60.0 (>32); GLUCOSE, FASTING 108 MG/DL (74-106); POTASSIUM SERUM 3.4 MMOL/L (3.5-5.1); SODIUM LEVEL 137 MMOL/L (136-145); TOTAL PROTEIN 6.8 G/DL (5.7-8.2)
[2022-05-29 01:00] LABS: CK-MB VALUE MASS < 1.0 NG/ML (<3.6)
[2022-05-29 01:12] LABS: CPK CREATINE PHOSPHOKINASE 38 U/L (34-145); MB/CK RELATIVE INDEX 2.63 (< OR =4)
[2022-05-29] MEDS ORDERED: ONDANSETRON 4MG 2ML VIAL IV ONE (02:10)
[2022-05-29] MEDS ORDERED: NS 1,000 ML IV ONE (02:10)
[2022-05-29] MEDS ORDERED: MOXIFLOXACIN HCL 400 MG in IV 1 EA IV ONE (02:15)
[2022-05-29] MEDS ORDERED: ISOVUE-370 76% 100ML VIAL As Ordered ONE (02:24)
[2022-05-29] MEDS: MORPHINE 2 MG/ML 1ML VIAL IV PRN ×2 (02:30→03:17)
[2022-05-29] MEDS: HYDROMORPHONE HCL 0.5 MG/ 0.5 ML SYRINGE IV PRN ×2 (04:53→11:04)
[2022-05-29 06:29] LABS: RSV AMPLIFICATION NEGATIVE (NEGATIVE)
[2022-05-29] MEDS ORDERED: CIPROFLOXACIN 200 MG in IV 1 EA IV SCH (07:00)
[2022-05-29] MEDS ORDERED: HYDROMORPHONE HCL 0.5 MG/ 0.5 ML SYRINGE IV PRN (07:00)
[2022-05-29] MEDS ORDERED: KCL 10MEQ/100ML SWI (KRUN) 10 MEQ in IV 1 EA IV ONE (08:00)
[2022-05-29] MEDS ORDERED: NS 1,000 ML IV SCH (08:00)
[2022-05-29] MEDS ORDERED: BISACODYL 10MG SUPP PR PRN (08:00)
[2022-05-29] MEDS ORDERED: NS 500 ML IV ONE (08:00)
[2022-05-29] MEDS ORDERED: FLEET ENEMA PR PRN (08:00)
[2022-05-29] MEDS ORDERED: HOME MED LIST COMPLETE! XX SCH (08:20)
[2022-05-29] MEDS ORDERED: POTASSIUM CHLORIDE 10MEQ SR TABLET PO ONE (09:30)
[2022-05-29] MEDS: LR 1,000 ML IV SCH ×2 (11:00→18:46)
[2022-05-29] MEDS: metroNIDAZOLE 500 MG in IV 1 EA IV SCH ×2 (11:00→15:45)
[2022-05-29] MEDS: DOCUSATE SODIUM 100MG CAPSULE PO SCH ×2 (11:02→21:14)
[2022-05-29] MEDS: CIPROFLOXACIN 400 MG in IV 1 EA IV SCH ×2 (11:03→21:14)
[2022-05-29] MEDS ORDERED: FENTANYL REMOVAL DOCUMENTATION MISC XX SCH (11:45)
[2022-05-29] MEDS: LACTULOSE 20GM/30ML SYRUP UDC PO SCH ×2 (12:52→21:15)
[2022-05-29 13:56] VITALS: BP 144/76
[2022-05-29 14:28] LABS: TOTAL IRON BINDING CAPACITY 379 UG/DL (250-425)
[2022-05-29 14:30] LABS: FERRITIN 7.6 NG/ML (7.3-270.7); FOLATE 10.68 NG/ML (>5.4)
[2022-05-29 14:31] LABS: VITAMIN B12 LEVEL 253 PG/ML (211-911)
[2022-05-29 15:16] LABS: IRON (FE) 8 UG/DL (50-170); PERCENT SATURATION 2.1 % (13.2-45.0)
[2022-05-29] MEDS: MORPHINE 4 MG/ML 1ML VIAL IV PRN ×2 (15:18→19:35)
[2022-05-29] MEDS ORDERED: FERRIC CARBOXYMALTOSE INJ 750 MG, VIAL MATE ADAPTER 1 EACH in NS 250 ML IV ONE (18:00)
[2022-05-29] MEDS ORDERED: SIMVASTATIN 20 MG TAB PO SCH (21:00)
[2022-05-29] MEDS ORDERED: METOPROLOL SUCC *XL* 25MG TAB (TopROL *XL*) PO SCH (21:00)
[2022-05-29] MEDS ORDERED: CitaloPRAM (CeleXA) 20 MG TAB PO SCH (21:00)
[2022-05-29] MEDS ORDERED: AMITRIPTYLINE 25MG TABLET PO SCH (21:00)
[2022-05-29 21:05] VITALS: BP 141/76
[2022-05-29 21:15] VITALS: BP 143/77
[2022-05-29] MEDS ORDERED: PROMETHAZINE 25MG/ML 1ML VIAL IV PRN (21:35)
[2022-05-29] MEDS ORDERED: PROMETHAZINE 25 MG TAB PO PRN (22:00)
[2022-05-30] MEDS: metroNIDAZOLE 500 MG in IV 1 EA IV SCH ×2 (00:52→08:16)
[2022-05-30] MEDS: MORPHINE 4 MG/ML 1ML VIAL IV PRN ×2 (03:28→11:54)
[2022-05-30] MEDS: LR 1,000 ML IV SCH ×2 (04:25→14:21)
[2022-05-30 05:36] VITALS: BP 154/67
[2022-05-30 06:37] LABS: BASO # 0.1 10^3/uL (0.0-0.2); BASO % 0.5 % (0.0-1.0); EOS # 0.3 10^3/uL (0.0-0.5); EOS % 2.8 % (0.0-3.0); HEMATOCRIT 25.1 % (36.0-47.0); LYMPH # 2.2 10^3/uL (1.5-5.0); LYMPH % 21.6 % (24.0-44.0); MEAN CORPUSCULAR HEMOGLOBIN 20.1 pg (27.0-33.0); MEAN CORPUSCULAR HGB CONC 28.3 g/dl (32.0-36.5); MEAN CORPUSCULAR VOLUME 70.9 fl (80.0-96.0); MONO # 0.9 10^3/uL (0.0-0.8); MONO % 8.5 % (2.0-8.0); NEUTROPHILS # 6.7 10^3/uL (1.5-8.5); NEUTROPHILS % 66.2 % (36.0-66.0); PLATELET COUNT, AUTOMATED 491 10^3/uL (150-450); RED BLOOD COUNT 3.54 10^6/uL (4.00-5.40); WHITE BLOOD COUNT 10.2 10^3/uL (4.0-10.0)
[2022-05-30 06:39] LABS: HEMOGLOBIN 7.1 g/dl (12.0-15.5)
[2022-05-30 06:54] LABS: BLOOD UREA NITROGEN 9 MG/DL (9-23); CALCIUM LEVEL 7.9 MG/DL (8.3-10.6); CARBON DIOXIDE LEVEL 28 MMOL/L (20-31); CHLORIDE LEVEL 106 MMOL/L (98-107); CREATININE FOR GFR 0.65 MG/DL (0.55-1.30); GLOMERULAR FILTRATION RATE > 60.0 (>32); GLUCOSE, FASTING 83 MG/DL (74-106); MAGNESIUM LEVEL 1.8 MG/DL (1.8-2.4); POTASSIUM SERUM 3.5 MMOL/L (3.5-5.1); SODIUM LEVEL 140 MMOL/L (136-145)
[2022-05-30] MEDS ORDERED: fentaNYL 50 MCG/HR PATCH TD SCH (09:00)
[2022-05-30] MEDS: DOCUSATE SODIUM 100MG CAPSULE PO SCH (09:00)
[2022-05-30] MEDS: CIPROFLOXACIN 400 MG in IV 1 EA IV SCH (11:03)
[2022-05-30] MEDS ORDERED: MIRA3350 PO (11:40)
[2022-05-30] MEDS ORDERED: CIPR250T3 PO (11:40)
[2022-05-30] MEDS ORDERED: METR-265 PO (11:40)
[2022-05-30 14:00] VITALS: BP 140/66
== END 2022-05-30 16:53 | disposition home or self-care (01) | DRG 872 ==
LOC: M ED 22:18 → EDBD 22:18 → M ED INP 05-29 07:00 → ENRESERV 05-29 13:12 → M MSPAV 05-29 13:54
PROVIDERS: ADMIT Internal Medicine; ATTEND Student in an Organized Health Care Education/Training Program
DX: A41.9 Sepsis, unspecified organism (principal); K57.32 Diverticulitis of large intestine without perforation or abscess without bleeding; M54.9 Dorsalgia, unspecified; G89.29 Other chronic pain; D50.9 Iron deficiency anemia, unspecified; I10 Essential (primary) hypertension; E87.6 Hypokalemia; E78.5 Hyperlipidemia, unspecified; K59.03 Drug induced constipation; F32.A Depression, unspecified; Z20.822 Contact with and (suspected) exposure to COVID-19; Z66 Do not resuscitate; Z79.899 Other long term (current) drug therapy; Z88.0 Allergy status to penicillin; Z88.8 Allergy status to other drugs, medicaments and biological substances; Z90.49 Acquired absence of other specified parts of digestive tract; Z79.891 Long term (current) use of opiate analgesic

== ENCOUNTER → 2023-06-20 | Outpatient (CLI) | payer MEDICARE ==
[~2023-06-20] MED LIST changes: -AMIT25TA17 PO; +AMIT25TA19 PO; +CIPR250T3 PO; -LUNE2TAB23 PO; +LUNE2TAB28 PO; +METR-265 PO; +ONDA-83 PO
[2023-06-20 18:14] LABS: BASO # 0.1 10^3/uL (0.0-0.2); BASO % 1.3 % (0.0-1.0); EOS # 0.5 10^3/uL (0.0-0.5); HEMATOCRIT 40.2 % (36.0-47.0); LYMPH # 3.4 10^3/uL (1.5-5.0); LYMPH % 43.8 % (24.0-44.0); MEAN CORPUSCULAR HEMOGLOBIN 25.1 pg (27.0-33.0); MEAN CORPUSCULAR HGB CONC 29.9 g/dl (32.0-36.5); MEAN CORPUSCULAR VOLUME 84.1 fl (80.0-96.0); MONO # 0.5 10^3/uL (0.0-0.8); MONO % 5.9 % (2.0-8.0); NEUTROPHILS # 3.4 10^3/uL (1.5-8.5); NEUTROPHILS % 42.7 % (36.0-66.0); PLATELET COUNT, AUTOMATED 392 10^3/uL (150-450); RED BLOOD COUNT 4.78 10^6/uL (4.00-5.40); WHITE BLOOD COUNT 7.9 10^3/uL (4.0-10.0)
[2023-06-20 18:47] LABS: ALBUMIN 3.1 G/DL (3.2-5.2); BILIRUBIN,TOTAL 0.4 MG/DL (0.3-1.2); CALCIUM LEVEL 8.9 MG/DL (8.3-10.6); CHOLESTEROL RISK RATIO 4.35 (<5); CREATININE FOR GFR 0.99 MG/DL (0.55-1.30); GLOMERULAR FILTRATION RATE 57.2 (>32); HDL CHOLESTEROL 56.3 MG/DL (>40); LDL CHOLESTEROL 154.7 MG/DL (<100); NON-HDL-C 188.7 MG/DL; POTASSIUM SERUM 5.2 MMOL/L (3.5-5.1); TOTAL PROTEIN 6.9 G/DL (5.7-8.2)
[2023-06-20 18:48] LABS: TOTAL 25(OH) VITAMIN D 22.3 NG/ML (20.0-100.0)
== END ==
LOC: M WUC 13:08
PROVIDERS: ATTEND Family Medicine
DX: M81.0 Age-related osteoporosis without current pathological fracture (principal); I10 Essential (primary) hypertension

== ENCOUNTER 2023-10-17 13:42 | Inpatient (IN) | payer OTHER ==
[~2023-10-17] VITALS: Ht 152.4 cm; Wt 60.0 kg
[2023-10-17 15:22] LABS: VENOUS BASE EXCESS 0.3 (-2.0-2.0); VENOUS HCO3 25.9 MMOL/L (23.0-27.0); VENOUS O2 SATURATION 70.9 % (60.0-80.0); VENOUS PARTIAL PRESSURE CO2 46.1 mmHg (38.0-50.0); VENOUS PARTIAL PRESSURE O2 37.1 mmHg (30.0-50.0); VENOUS PH 7.367 UNITS (7.330-7.430); VENOUS STANDARD HCO3 24.2 MMOL/L; VENOUS TOTAL CO2 27.3 MMOL/L (24.0-28.0)
[2023-10-17 15:26] LABS: BASO % 0.2 % (0.0-1.0); EOS % 0.1 % (0.0-3.0); HEMATOCRIT 32.7 % (36.0-47.0); HEMOGLOBIN 9.7 g/dl (12.0-15.5); LYMPH % 7.7 % (24.0-44.0); MEAN CORPUSCULAR HEMOGLOBIN 21.7 pg (27.0-33.0); MEAN CORPUSCULAR HGB CONC 29.7 g/dl (32.0-36.5); MEAN CORPUSCULAR VOLUME 73.3 fl (80.0-96.0); MONO # 0.8 10^3/uL (0.0-0.8); MONO % 5.9 % (2.0-8.0); NEUTROPHILS # 10.8 10^3/uL (1.5-8.5); NEUTROPHILS % 85.5 % (36.0-66.0); PLATELET COUNT, AUTOMATED 379 10^3/uL (150-450); RED BLOOD COUNT 4.46 10^6/uL (4.00-5.40); WHITE BLOOD COUNT 12.6 10^3/uL (4.0-10.0)
[2023-10-17] MEDS ORDERED: DULO1CAP5 PO (15:48)
[2023-10-17] MEDS ORDERED: FENT75DI29 TOP (15:48)
[2023-10-17] MEDS ORDERED: HOME MED LIST COMPLETE! XX SCH (15:50)
[2023-10-17 15:52] LABS: OSMOLALITY SERUM 290 MOSM/KG (280-301)
[2023-10-17 15:56] LABS: ALBUMIN 3.3 G/DL (3.2-5.2); ALKALINE PHOSPHATASE 112 U/L (46-116); ALT/SGPT 18 U/L (7.0-40); AST/SGOT 22 U/L (<34); BILIRUBIN,DIRECT 0.2 MG/DL (<0.4); BILIRUBIN,TOTAL 0.5 MG/DL (0.3-1.2); BLOOD UREA NITROGEN 12 MG/DL (9-23); CARBON DIOXIDE LEVEL 26 MMOL/L (20-31); CHLORIDE LEVEL 101 MMOL/L (98-107); CREATININE FOR GFR 0.77 MG/DL (0.55-1.30); GLOMERULAR FILTRATION RATE > 60.0 (>32); GLUCOSE, FASTING 117 MG/DL (74-106); SODIUM LEVEL 134 MMOL/L (136-145); TOTAL PROTEIN 7.1 G/DL (5.7-8.2)
[2023-10-17 15:58] LABS: THYROID STIMULATING HORMONE 0.958 uIU/ML (0.55-4.78)
[2023-10-17] MEDS: MORPHINE 2 MG/ML 1ML VIAL IV PRN (16:00)
[2023-10-17 17:21] LABS: IRON (FE) 27 UG/DL (50-170); PERCENT SATURATION 6.6 % (13.2-45.0); TOTAL IRON BINDING CAPACITY 409 UG/DL (250-425)
[2023-10-17 17:23] LABS: FERRITIN 8.5 NG/ML (7.3-270.7)
[2023-10-17 17:24] LABS: VITAMIN B12 LEVEL 434 PG/ML (211-911)
[2023-10-17 17:28] LABS: FOLATE 10.5 NG/ML (>5.4)
[2023-10-17] MEDS: KETOROLAC 30 MG/ML 1ML VIAL IV SCH (18:15)
[2023-10-17 20:30] VITALS: BP 171/86; TEMP 97.7; O2SAT 93
[2023-10-17] MEDS: METOPROLOL SUCC *XL* 25MG TAB (TopROL *XL*) PO SCH (21:26)
[2023-10-17] MEDS: SENOKOT S TAB PO SCH (21:26)
[2023-10-17] MEDS: SIMVASTATIN 20 MG TAB PO SCH (21:26)
[2023-10-17] MEDS: AMITRIPTYLINE 25MG TABLET PO SCH (21:26)
[2023-10-17] MEDS: oxyCODONE 5MG TAB PO PRN (21:27)
[2023-10-17] MEDS: ACETAMINOPHEN 500 MG TAB PO SCH (21:29)
[2023-10-17 23:11] VITALS: BP 116/60
[2023-10-18] VITALS (8 sets, daily range): BP systolic 108–128; BP diastolic 54–69; TEMP 96.7–97.9; O2SAT 90–97
[2023-10-18 06:32] LABS: HEMATOCRIT 31.4 % (36.0-47.0); HEMOGLOBIN 9.2 g/dl (12.0-15.5); MEAN CORPUSCULAR HEMOGLOBIN 21.3 pg (27.0-33.0); MEAN CORPUSCULAR HGB CONC 29.3 g/dl (32.0-36.5); MEAN CORPUSCULAR VOLUME 72.7 fl (80.0-96.0); PLATELET COUNT, AUTOMATED 333 10^3/uL (150-450); RED BLOOD COUNT 4.32 10^6/uL (4.00-5.40); WHITE BLOOD COUNT 10.8 10^3/uL (4.0-10.0)
[2023-10-18 06:47] LABS: GLOMERULAR FILTRATION RATE 56.5 (>32); POTASSIUM SERUM 3.9 MMOL/L (3.5-5.1)
[2023-10-18] MEDS: FERROUS SULFATE 325MG TAB PO SCH (08:20)
[2023-10-18] MEDS: DULoxetine 30MG CAPSULE (CYMBALTA) PO SCH (08:20)
[2023-10-18] MEDS: MORPHINE 2 MG/ML 1ML VIAL IV PRN (10:29)
[2023-10-18] MEDS ORDERED: propofoL 200 MG/20 ML VIAL As Ordered ONE (12:10)
[2023-10-18] MEDS ORDERED: KETAMINE HCL 200MG/20ML VIAL As Ordered ONE (12:16)
[2023-10-18] MEDS ORDERED: MIDAZOLAM INJ 2MG/2ML VIAL As Ordered ONE (12:16)
[2023-10-18] MEDS ORDERED: ROCURONIUM BROMIDE 50MG/5ML VIAL As Ordered ONE (12:19)
[2023-10-18] MEDS ORDERED: LIDOCAINE 2% 100MG/5ML SDV (FOR ANES.) As Ordered ONE (12:19)
[2023-10-18] MEDS ORDERED: fentaNYL 100 MCG/2 ML INJECTION As Ordered ONE (12:20)
[2023-10-18] MEDS: ceFAZolin 2 GM/D5W 50 ML IV BAG As Ordered ONE (12:42)
[2023-10-18] MEDS: CLINDAMYCIN 600MG/50ML PREMIX BAG As Ordered ONE (12:50)
[2023-10-18] MEDS ORDERED: PHENYLEPHRINE 10MG/ML 1ML VIAL As Ordered ONE (12:57)
[2023-10-18] MEDS ORDERED: ACETAMINOPHEN 1000MG 100ML IV BAG As Ordered ONE (13:03)
[2023-10-18] MEDS ORDERED: ePHEDrine SULFATE 25 MG/5 ML(5MG/ML) SYRINGE As Ordered ONE (13:14)
[2023-10-18] MEDS ORDERED: PHENYLephrine 500MCG 5ML (100MCG/ML) SYRINGE As Ordered ONE (13:14)
[2023-10-18] MEDS ORDERED: ONDANSETRON 4MG 2ML VIAL As Ordered ONE (13:17)
[2023-10-18] MEDS ORDERED: SUGAMMADEX SODIUM 500 MG/5 ML VIAL (BRIDION) As Ordered ONE (13:18)
[2023-10-18] MEDS ORDERED: fentaNYL 100 MCG/2 ML INJECTION IV PRN (13:35)
[2023-10-18] MEDS ORDERED: ONDANSETRON 4MG 2ML VIAL IV PRN (13:35)
[2023-10-18] MEDS ORDERED: HYDROMORPHONE HCL 0.5 MG/ 0.5 ML SYRINGE IV PRN (13:35)
[2023-10-18] MEDS: NS 1,000 ML IV SCH (15:00)
[2023-10-18] MEDS: ALBUTEROL SULFATE 2.5MG/0.5ML INH NEB SOLN INH ONE (15:17)
[2023-10-18] MEDS: CLINDAMYCIN 600 MG in IV 1 EA IV SCH (20:48)
[2023-10-18] MEDS ORDERED: ENOXAPARIN 30MG/0.3ML SYRINGE (J1650 PER 10MG) SC SCH (21:00)
[2023-10-18] MEDS: HYDROMORPHONE HCL 0.5 MG/ 0.5 ML SYRINGE IV ONE (23:01)
[2023-10-19 00:01] VITALS: BP 118/57; TEMP 97.5; O2SAT 94
[2023-10-19 04:04] VITALS: BP 118/62; TEMP 97.2; O2SAT 97
[2023-10-19] MEDS ORDERED: HYDROMORPHONE HCL 0.5 MG/ 0.5 ML SYRINGE IV PRN (07:30)
[2023-10-19] MEDS ORDERED: oxyCODONE 5MG TAB PO PRN (07:30)
[2023-10-19 07:32] LABS: BASO % 0.1 % (0.0-1.0); HEMATOCRIT 27.5 % (36.0-47.0); HEMOGLOBIN 8.2 g/dl (12.0-15.5); LYMPH % 8.6 % (24.0-44.0); MEAN CORPUSCULAR HEMOGLOBIN 21.9 pg (27.0-33.0); MEAN CORPUSCULAR HGB CONC 29.8 g/dl (32.0-36.5); MEAN CORPUSCULAR VOLUME 73.5 fl (80.0-96.0); MONO # 0.6 10^3/uL (0.0-0.8); MONO % 5.1 % (2.0-8.0); NEUTROPHILS # 9.5 10^3/uL (1.5-8.5); NEUTROPHILS % 85.6 % (36.0-66.0); PLATELET COUNT, AUTOMATED 282 10^3/uL (150-450); RED BLOOD COUNT 3.74 10^6/uL (4.00-5.40); WHITE BLOOD COUNT 11.1 10^3/uL (4.0-10.0)
[2023-10-19 08:00] VITALS: BP 123/64; TEMP 97; O2SAT 96
[2023-10-19 08:01] LABS: CALCIUM LEVEL 8.2 MG/DL (8.3-10.6); CREATININE FOR GFR 0.97 MG/DL (0.55-1.30); GLOMERULAR FILTRATION RATE 58.5 (>32); POTASSIUM SERUM 4.4 MMOL/L (3.5-5.1)
[2023-10-19] MEDS: oxyCODONE 5MG TAB PO PRN (08:42)
[2023-10-19] MEDS ORDERED: BISACODYL 10MG SUPP PR PRN (11:15)
[2023-10-19] MEDS ORDERED: MOM 30ML SUSPENSION UDC PO PRN (11:15)
[2023-10-19] MEDS ORDERED: MIRALAX *UNIT DOSE* 17GM PACKET PO PRN (11:15)
[2023-10-19] MEDS: MORPHINE 2 MG/ML 1ML VIAL IV ONE (11:37)
[2023-10-19] MEDS: CYCLOBENZAPRINE 5MG TABLET PO PRN (11:57)
[2023-10-19 12:00] VITALS: BP 116/63; TEMP 97.2; O2SAT 97
[2023-10-19 19:42] VITALS: BP 111/57; TEMP 96.6; O2SAT 91
[2023-10-19] MEDS: ENOXAPARIN 30MG/0.3ML SYRINGE (J1650 PER 10MG) SC SCH (21:09)
[2023-10-20] MEDS: CALCIUM CARBONATE 500 MG CHEW U/D PO PRN (00:03)
[2023-10-20 04:35] VITALS: BP 140/81; TEMP 97.3; O2SAT 92
[2023-10-20 06:16] LABS: BASO # 0.1 10^3/uL (0.0-0.2); BASO % 0.8 % (0.0-1.0); EOS # 0.4 10^3/uL (0.0-0.5); EOS % 4.3 % (0.0-3.0); HEMATOCRIT 28.9 % (36.0-47.0); HEMOGLOBIN 8.3 g/dl (12.0-15.5); LYMPH # 2.5 10^3/uL (1.5-5.0); LYMPH % 27.1 % (24.0-44.0); MEAN CORPUSCULAR HEMOGLOBIN 21.6 pg (27.0-33.0); MEAN CORPUSCULAR HGB CONC 28.7 g/dl (32.0-36.5); MEAN CORPUSCULAR VOLUME 75.3 fl (80.0-96.0); MONO # 0.6 10^3/uL (0.0-0.8); MONO % 6.6 % (2.0-8.0); NEUTROPHILS # 5.6 10^3/uL (1.5-8.5); NEUTROPHILS % 60.8 % (36.0-66.0); PLATELET COUNT, AUTOMATED 279 10^3/uL (150-450); RED BLOOD COUNT 3.84 10^6/uL (4.00-5.40); WHITE BLOOD COUNT 9.1 10^3/uL (4.0-10.0)
[2023-10-20 06:42] LABS: CALCIUM LEVEL 8.4 MG/DL (8.3-10.6); CREATININE FOR GFR 0.95 MG/DL (0.55-1.30); MAGNESIUM LEVEL 1.8 MG/DL (1.8-2.4); POTASSIUM SERUM 4.3 MMOL/L (3.5-5.1)
[2023-10-20] MEDS: fentaNYL 75 MCG/HR PATCH TOP SCH (06:56)
[2023-10-20] MEDS: FENTANYL REMOVAL DOCUMENTATION MISC XX SCH (07:00)
[2023-10-20] MEDS: MAGNESIUM OXIDE 400MG TAB (MAG-OX) PO SCH (09:01)
[2023-10-20] MEDS: PANTOPRAZOLE 20 MG TAB PO SCH (09:01)
[2023-10-20 12:01] VITALS: BP 115/63; TEMP 97.9; O2SAT 94
[2023-10-20 20:19] VITALS: BP 143/75; TEMP 97.2; O2SAT 92
[2023-10-21 04:00] VITALS: BP 151/82; TEMP 97.7; O2SAT 94
[2023-10-21 06:35] LABS: BASO # 0.1 10^3/uL (0.0-0.2); EOS # 0.5 10^3/uL (0.0-0.5); EOS % 5.2 % (0.0-3.0); LYMPH # 2.8 10^3/uL (1.5-5.0); MEAN CORPUSCULAR HEMOGLOBIN 21.2 pg (27.0-33.0); MEAN CORPUSCULAR HGB CONC 28.6 g/dl (32.0-36.5); MEAN CORPUSCULAR VOLUME 74.1 fl (80.0-96.0); MONO # 0.7 10^3/uL (0.0-0.8); MONO % 7.2 % (2.0-8.0); NEUTROPHILS # 5.2 10^3/uL (1.5-8.5); NEUTROPHILS % 56.2 % (36.0-66.0); PLATELET COUNT, AUTOMATED 338 10^3/uL (150-450); RED BLOOD COUNT 3.78 10^6/uL (4.00-5.40); WHITE BLOOD COUNT 9.2 10^3/uL (4.0-10.0)
[2023-10-21 07:05] LABS: BLOOD UREA NITROGEN 17 MG/DL (9-23); CALCIUM LEVEL 8.6 MG/DL (8.3-10.6); CARBON DIOXIDE LEVEL 29 MMOL/L (20-31); CHLORIDE LEVEL 105 MMOL/L (98-107); CREATININE FOR GFR 0.77 MG/DL (0.55-1.30); GLOMERULAR FILTRATION RATE > 60.0 (>32); GLUCOSE, FASTING 87 MG/DL (74-106); MAGNESIUM LEVEL 1.9 MG/DL (1.8-2.4); POTASSIUM SERUM 4.6 MMOL/L (3.5-5.1); SODIUM LEVEL 138 MMOL/L (136-145)
[2023-10-21 11:30] VITALS: BP 147/76; TEMP 97.5; O2SAT 94
[2023-10-21] MEDS: ONDANSETRON 4MG ORAL DISINTEGRATING TAB SL PRN (18:01)
[2023-10-21 19:29] VITALS: BP 113/61; TEMP 97.9; O2SAT 92
[2023-10-22 04:01] VITALS: BP 122/65; TEMP 97.7; O2SAT 90
[2023-10-22 06:33] LABS: BASO # 0.1 10^3/uL (0.0-0.2); BASO % 0.7 % (0.0-1.0); EOS # 0.4 10^3/uL (0.0-0.5); EOS % 4.1 % (0.0-3.0); HEMATOCRIT 30.8 % (36.0-47.0); HEMOGLOBIN 8.9 g/dl (12.0-15.5); LYMPH # 1.9 10^3/uL (1.5-5.0); LYMPH % 21.8 % (24.0-44.0); MEAN CORPUSCULAR HEMOGLOBIN 21.6 pg (27.0-33.0); MEAN CORPUSCULAR HGB CONC 28.9 g/dl (32.0-36.5); MEAN CORPUSCULAR VOLUME 74.8 fl (80.0-96.0); MONO # 0.7 10^3/uL (0.0-0.8); MONO % 7.6 % (2.0-8.0); NEUTROPHILS # 5.7 10^3/uL (1.5-8.5); NEUTROPHILS % 65.2 % (36.0-66.0); PLATELET COUNT, AUTOMATED 337 10^3/uL (150-450); RED BLOOD COUNT 4.12 10^6/uL (4.00-5.40); WHITE BLOOD COUNT 8.8 10^3/uL (4.0-10.0)
[2023-10-22 07:00] LABS: BLOOD UREA NITROGEN 14 MG/DL (9-23); CALCIUM LEVEL 8.7 MG/DL (8.3-10.6); CARBON DIOXIDE LEVEL 28 MMOL/L (20-31); CHLORIDE LEVEL 103 MMOL/L (98-107); CREATININE FOR GFR 0.76 MG/DL (0.55-1.30); GLOMERULAR FILTRATION RATE > 60.0 (>32); GLUCOSE, FASTING 83 MG/DL (74-106); MAGNESIUM LEVEL 2.2 MG/DL (1.8-2.4); POTASSIUM SERUM 4.8 MMOL/L (3.5-5.1); SODIUM LEVEL 135 MMOL/L (136-145)
[2023-10-22 12:20] VITALS: BP 122/65; TEMP 97.9; O2SAT 91
[2023-10-22 19:30] VITALS: BP 121/61; TEMP 97.5; O2SAT 91
[2023-10-23] VITALS (7 sets, daily range): BP systolic 123–159; BP diastolic 62–82; TEMP 97–98.6; O2SAT 91–94
[2023-10-23 05:48] LABS: BASO % 0.3 % (0.0-1.0); EOS # 0.3 10^3/uL (0.0-0.5); EOS % 3.3 % (0.0-3.0); HEMATOCRIT 28.2 % (36.0-47.0); HEMOGLOBIN 7.9 g/dl (12.0-15.5); LYMPH # 1.8 10^3/uL (1.5-5.0); LYMPH % 18.8 % (24.0-44.0); MEAN CORPUSCULAR VOLUME 74.8 fl (80.0-96.0); MONO # 0.8 10^3/uL (0.0-0.8); MONO % 8.4 % (2.0-8.0); NEUTROPHILS # 6.6 10^3/uL (1.5-8.5); NEUTROPHILS % 68.8 % (36.0-66.0); RED BLOOD COUNT 3.77 10^6/uL (4.00-5.40); WHITE BLOOD COUNT 9.6 10^3/uL (4.0-10.0)
[2023-10-23 05:56] LABS: BLOOD UREA NITROGEN 14 MG/DL (9-23); CALCIUM LEVEL 8.4 MG/DL (8.3-10.6); CARBON DIOXIDE LEVEL 25 MMOL/L (20-31); CHLORIDE LEVEL 106 MMOL/L (98-107); CREATININE FOR GFR 0.69 MG/DL (0.55-1.30); GLOMERULAR FILTRATION RATE > 60.0 (>32); GLUCOSE, FASTING 114 MG/DL (74-106); SODIUM LEVEL 137 MMOL/L (136-145)
[2023-10-24 03:51] VITALS: BP 146/76; TEMP 97.7; O2SAT 94
[2023-10-24 04:27] VITALS: BP 133/80; TEMP 98.1; O2SAT 98
[2023-10-24 06:54] LABS: BASO % 0.5 % (0.0-1.0); EOS # 0.4 10^3/uL (0.0-0.5); EOS % 4.4 % (0.0-3.0); LYMPH # 2.5 10^3/uL (1.5-5.0); LYMPH % 28.4 % (24.0-44.0); MEAN CORPUSCULAR HEMOGLOBIN 23.5 pg (27.0-33.0); MEAN CORPUSCULAR HGB CONC 29.5 g/dl (32.0-36.5); MEAN CORPUSCULAR VOLUME 79.9 fl (80.0-96.0); MONO # 0.8 10^3/uL (0.0-0.8); MONO % 9.5 % (2.0-8.0); NEUTROPHILS # 4.9 10^3/uL (1.5-8.5); NEUTROPHILS % 56.5 % (36.0-66.0); PLATELET COUNT, AUTOMATED 395 10^3/uL (150-450); RED BLOOD COUNT 4.42 10^6/uL (4.00-5.40); WHITE BLOOD COUNT 8.7 10^3/uL (4.0-10.0)
[2023-10-24 07:02] LABS: HEMATOCRIT 35.3 % (36.0-47.0); HEMOGLOBIN 10.4 g/dl (12.0-15.5)
[2023-10-24 07:15] LABS: BLOOD UREA NITROGEN 11 MG/DL (9-23); CALCIUM LEVEL 8.7 MG/DL (8.3-10.6); CARBON DIOXIDE LEVEL 30 MMOL/L (20-31); CHLORIDE LEVEL 103 MMOL/L (98-107); CREATININE FOR GFR 0.68 MG/DL (0.55-1.30); GLOMERULAR FILTRATION RATE > 60.0 (>32); GLUCOSE, FASTING 89 MG/DL (74-106); POTASSIUM SERUM 4.4 MMOL/L (3.5-5.1); SODIUM LEVEL 136 MMOL/L (136-145)
[2023-10-24 11:50] VITALS: BP 130/79; TEMP 97.9; O2SAT 94
[2023-10-24] MEDS: oxyCODONE 5MG TAB PO PRN (16:10)
[2023-10-24 19:40] VITALS: BP 125/73; TEMP 98.1; O2SAT 94
[2023-10-25] MEDS: oxyCODONE 5MG TAB PO PRN (00:48)
[2023-10-25 03:53] VITALS: BP 130/74; TEMP 97.9; O2SAT 92
[2023-10-25 06:03] LABS: BASO # 0.1 10^3/uL (0.0-0.2); BASO % 0.6 % (0.0-1.0); EOS # 0.4 10^3/uL (0.0-0.5); EOS % 5.2 % (0.0-3.0); HEMATOCRIT 33.5 % (36.0-47.0); HEMOGLOBIN 9.9 g/dl (12.0-15.5); LYMPH # 2.4 10^3/uL (1.5-5.0); LYMPH % 28.2 % (24.0-44.0); MEAN CORPUSCULAR HEMOGLOBIN 23.5 pg (27.0-33.0); MEAN CORPUSCULAR HGB CONC 29.6 g/dl (32.0-36.5); MEAN CORPUSCULAR VOLUME 79.6 fl (80.0-96.0); MONO # 0.8 10^3/uL (0.0-0.8); MONO % 9.6 % (2.0-8.0); NEUTROPHILS # 4.7 10^3/uL (1.5-8.5); NEUTROPHILS % 55.2 % (36.0-66.0); PLATELET COUNT, AUTOMATED 479 10^3/uL (150-450); RED BLOOD COUNT 4.21 10^6/uL (4.00-5.40); WHITE BLOOD COUNT 8.5 10^3/uL (4.0-10.0)
[2023-10-25 06:22] LABS: BLOOD UREA NITROGEN 14 MG/DL (9-23); CALCIUM LEVEL 8.4 MG/DL (8.3-10.6); CARBON DIOXIDE LEVEL 31 MMOL/L (20-31); CHLORIDE LEVEL 102 MMOL/L (98-107); CREATININE FOR GFR 0.78 MG/DL (0.55-1.30); GLOMERULAR FILTRATION RATE > 60.0 (>32); GLUCOSE, FASTING 88 MG/DL (74-106); POTASSIUM SERUM 4.6 MMOL/L (3.5-5.1); SODIUM LEVEL 135 MMOL/L (136-145)
[2023-10-25 12:23] VITALS: BP 136/76; TEMP 98.2; O2SAT 92
[2023-10-25 20:24] VITALS: BP 138/78; TEMP 97.5; O2SAT 92
[2023-10-26 04:13] VITALS: BP 138/75; TEMP 96.8; O2SAT 95
[2023-10-26 12:00] VITALS: BP 143/75; TEMP 97.5; O2SAT 94
[2023-10-26 20:41] VITALS: BP 157/87; TEMP 98.6; O2SAT 95
[2023-10-27 04:50] VITALS: BP 123/70; TEMP 98.1; O2SAT 92
[2023-10-27 12:00] VITALS: BP 151/73; TEMP 97; O2SAT 93
[2023-10-27 19:53] VITALS: BP 150/78; TEMP 97.5; O2SAT 95
[2023-10-27 20:27] VITALS: BP 150/78
[2023-10-28] MEDS ORDERED: PERMETHRIN 5% CREAM 60 GM TOP SCH
[2023-10-28 04:02] VITALS: BP 152/75; TEMP 97.3; O2SAT 98
[2023-10-28 12:00] VITALS: BP 131/70; TEMP 97.6; O2SAT 97
[2023-10-28] MEDS ORDERED: SENN-52 PO (14:21)
[2023-10-28] MEDS ORDERED: PANT20TA51 PO (14:21)
[2023-10-28] MEDS ORDERED: PERMETHRIN 5% CREAM 60 GM TOP ONE (18:00)
== END 2023-10-28 17:30 | disposition home health service (06) | DRG 481 ==
LOC: EDBD 13:42 → M ED 13:42 → M ED INP 16:43 → M MS5PR 20:34
PROVIDERS: ADMIT Internal Medicine Nephrology; ATTEND Internal Medicine
PROC: 0QS734Z Reposition Left Upper Femur with Internal Fixation Device, Percutaneous Approach (ICD-10-PCS; principal; 2023-10-18 15:00)
PROC: 30233N1 Transfusion of Nonautologous Red Blood Cells into Peripheral Vein, Percutaneous Approach (ICD-10-PCS; 2023-10-23)
DX: S72.002A Fracture of unspecified part of neck of left femur, initial encounter for closed fracture (principal); E87.1 Hypo-osmolality and hyponatremia; D62 Acute posthemorrhagic anemia; Z66 Do not resuscitate; I10 Essential (primary) hypertension; K21.9 Gastro-esophageal reflux disease without esophagitis; K44.9 Diaphragmatic hernia without obstruction or gangrene; E78.5 Hyperlipidemia, unspecified; M54.9 Dorsalgia, unspecified; G89.29 Other chronic pain; F03.90 Unspecified dementia, unspecified severity, without behavioral disturbance, psychotic disturbance, mood disturbance, and anxiety; D50.9 Iron deficiency anemia, unspecified; Z90.49 Acquired absence of other specified parts of digestive tract; Z87.891 Personal history of nicotine dependence; Z79.899 Other long term (current) drug therapy; Z88.0 Allergy status to penicillin; Z88.8 Allergy status to other drugs, medicaments and biological substances; Z86.73 Personal history of transient ischemic attack (TIA), and cerebral infarction without residual deficits; W19.XXXA Unspecified fall, initial encounter; Y92.009 Unspecified place in unspecified non-institutional (private) residence as the place of occurrence of the external cause; Y93.9 Activity, unspecified; Z79.891 Long term (current) use of opiate analgesic

== ENCOUNTER → 2023-11-07 | Outpatient (CLI) | payer OTHER ==
[~2023-11-07] MED LIST changes: +DULO1CAP5 PO; +FENT75DI29 TOP; +PANT20TA51 PO; +SENN-52 PO
== END ==
LOC: M SOG 15:44
PROVIDERS: ATTEND Physician Assistant
DX: S72.002D Fracture of unspecified part of neck of left femur, subsequent encounter for closed fracture with routine healing (principal); M16.12 Unilateral primary osteoarthritis, left hip

== ENCOUNTER → 2023-11-16 | Outpatient (CLI) | payer OTHER | LOC: M SOG 07:21 | PROVIDERS: ATTEND Physician Assistant | DX: S72.002A Fracture of unspecified part of neck of left femur, initial encounter for closed fracture (principal); X58.XXXA Exposure to other specified factors, initial encounter; Y92.9 Unspecified place or not applicable; Y93.9 Activity, unspecified; Y99.9 Unspecified external cause status ==

== ENCOUNTER 2023-11-21 10:15 | Inpatient (IN) | payer OTHER ==
[~2023-11-21] VITALS: Ht 152.4 cm; Wt 56.9 kg
[2023-11-21 15:30] VITALS: BP 175/95; TEMP 98.2; O2SAT 98
[2023-11-21 16:19] LABS: BASO # 0.1 10^3/uL (0.0-0.2); BASO % 0.6 % (0.0-1.0); EOS # 0.1 10^3/uL (0.0-0.5); EOS % 1.1 % (0.0-3.0); HEMATOCRIT 34.1 % (36.0-47.0); HEMOGLOBIN 10.4 g/dl (12.0-15.5); LYMPH # 2.4 10^3/uL (1.5-5.0); LYMPH % 20.8 % (24.0-44.0); MEAN CORPUSCULAR HEMOGLOBIN 24.1 pg (27.0-33.0); MEAN CORPUSCULAR HGB CONC 30.5 g/dl (32.0-36.5); MEAN CORPUSCULAR VOLUME 78.9 fl (80.0-96.0); MONO # 0.8 10^3/uL (0.0-0.8); MONO % 6.7 % (2.0-8.0); NEUTROPHILS # 8.1 10^3/uL (1.5-8.5); NEUTROPHILS % 70.4 % (36.0-66.0); PLATELET COUNT, AUTOMATED 733 10^3/uL (150-450); RED BLOOD COUNT 4.32 10^6/uL (4.00-5.40); WHITE BLOOD COUNT 11.4 10^3/uL (4.0-10.0)
[2023-11-21 16:32] LABS: INR 0.99; PARTIAL THROMBOPLASTIN TIME 29.2 SECONDS (24.8-34.2); PROTHROMBIN TIME 12.8 SECONDS (12.5-14.5)
[2023-11-21 16:50] LABS: ALBUMIN 2.8 G/DL (3.2-5.2); ALKALINE PHOSPHATASE 164 U/L (46-116); ALT/SGPT < 9 U/L (7.0-40); AST/SGOT 8 U/L (<34); BILIRUBIN,TOTAL 0.2 MG/DL (0.3-1.2); BLOOD UREA NITROGEN 17 MG/DL (9-23); CALCIUM LEVEL 9.6 MG/DL (8.3-10.6); CARBON DIOXIDE LEVEL 27 MMOL/L (20-31); CHLORIDE LEVEL 102 MMOL/L (98-107); CREATININE FOR GFR 0.62 MG/DL (0.55-1.30); GLOMERULAR FILTRATION RATE > 60.0 (>32); GLUCOSE, FASTING 99 MG/DL (74-106); POTASSIUM SERUM 4.1 MMOL/L (3.5-5.1); SODIUM LEVEL 136 MMOL/L (136-145); TOTAL PROTEIN 7.1 G/DL (5.7-8.2)
[2023-11-21] MEDS: METOPROLOL TART 25 MG TABLET PO ONE (17:25)
[2023-11-21] MEDS: MORPHINE 2 MG/ML 1ML VIAL IV ONE (17:25)
[2023-11-21] MEDS: traMADol 50 MG TAB PO ONE ×2 (17:25→19:34)
[2023-11-21] MEDS ORDERED: SENOKOT S TAB PO PRN (18:30)
[2023-11-21] MEDS ORDERED: MOM 30ML SUSPENSION UDC PO PRN (18:30)
[2023-11-21] MEDS: ACETAMINOPHEN *IV* 1,000 MG in IV 1 EA IV ONE (19:28)
[2023-11-21 20:01] VITALS: BP 123/63; TEMP 98.6; O2SAT 94
[2023-11-21] MEDS: amLODIPine 5 MG TAB PO SCH (20:18)
[2023-11-21] MEDS: MORPHINE 2 MG/ML 1ML VIAL IV PRN (21:04)
[2023-11-21] MEDS ORDERED: traMADol 50 MG TAB PO ONE (23:00)
[2023-11-21] MEDS: traMADol 50 MG TAB PO PRN (23:36)
[2023-11-21] MEDS: METOPROLOL TART 12.5 MG PER 1/2 TAB PO SCH (23:37)
[2023-11-22] VITALS (9 sets, daily range): BP systolic 114–149; BP diastolic 62–97; TEMP 97.2–98.3; O2SAT 90–99
[2023-11-22] MEDS: FLUBLOK(EGGFREE) TRIVAL(24-25) VACCINE PF 0.5ML SYRINGE 18YRS & OLDER IM.IMMUN ONE (08:31)
[2023-11-22] MEDS ORDERED: fentaNYL 100 MCG/2 ML INJECTION As Ordered ONE (14:03)
[2023-11-22] MEDS ORDERED: LIDOCAINE 2% 100MG/5ML SDV (FOR ANES.) As Ordered ONE (14:03)
[2023-11-22] MEDS ORDERED: ROCURONIUM BROMIDE 50MG/5ML VIAL As Ordered ONE (14:03)
[2023-11-22] MEDS ORDERED: propofoL 200 MG/20 ML VIAL As Ordered ONE (14:03)
[2023-11-22] MEDS ORDERED: ONDANSETRON 4MG 2ML VIAL As Ordered ONE (14:26)
[2023-11-22] MEDS: ceFAZolin 2 GM/D5W 50 ML IV BAG As Ordered ONE (16:01)
[2023-11-22] MEDS: TRANEXAMIC ACID 100 MG/ML 10ML VIAL As Ordered ONE (16:10)
[2023-11-22] MEDS ORDERED: ACETAMINOPHEN 1000MG 100ML IV BAG As Ordered ONE (16:11)
[2023-11-22] MEDS ORDERED: PHENYLephrine 500MCG 5ML (100MCG/ML) SYRINGE As Ordered ONE (16:11)
[2023-11-22] MEDS ORDERED: SUGAMMADEX SODIUM 500 MG/5 ML VIAL (BRIDION) As Ordered ONE (16:16)
[2023-11-22] MEDS ORDERED: LABETALOL 100MG/20ML VIAL As Ordered ONE (16:19)
[2023-11-22] MEDS: VANCOMYCIN 1000MG/20ML VIAL As Ordered ONE (17:35)
[2023-11-22] MEDS ORDERED: ONDANSETRON 4MG 2ML VIAL IV PRN (17:45)
[2023-11-22] MEDS ORDERED: fentaNYL 100 MCG/2 ML INJECTION IV PRN (17:45)
[2023-11-22] MEDS: LR 1,000 ML IV SCH (17:45)
[2023-11-22] MEDS ORDERED: SENNA 8.6 MG TAB (SENOKOT) PO PRN (17:50)
[2023-11-22] MEDS ORDERED: LR 1,000 ML IV SCH (17:50)
[2023-11-22] MEDS: HYDROMORPHONE HCL 0.5 MG/ 0.5 ML SYRINGE IV PRN (18:01)
[2023-11-22] MEDS: oxyCODONE 5MG TAB PO PRN (18:25)
[2023-11-22] MEDS: DOCUSATE SODIUM 100MG CAPSULE PO SCH (20:10)
[2023-11-22] MEDS: ASPIRIN 81MG ENTERIC TABLET PO SCH (20:10)
[2023-11-22] MEDS: traMADol 50 MG TAB PO PRN (20:12)
[2023-11-23] VITALS (8 sets, daily range): BP systolic 120–155; BP diastolic 62–76; TEMP 97–98.7; O2SAT 88–98
[2023-11-23] MEDS: ceFAZolin SOD 2 GM in IV 1 EA IV SCH (00:44)
[2023-11-23] MEDS: ASCORBIC ACID 500 MG TAB PO SCH (08:16)
[2023-11-23] MEDS: FERROUS SULFATE 325MG TAB PO SCH (08:16)
[2023-11-23 09:02] LABS: BASO % 0.2 % (0.0-1.0); HEMATOCRIT 30.1 % (36.0-47.0); HEMOGLOBIN 8.9 g/dl (12.0-15.5); LYMPH # 1.5 10^3/uL (1.5-5.0); LYMPH % 11.6 % (24.0-44.0); MEAN CORPUSCULAR HEMOGLOBIN 24.1 pg (27.0-33.0); MEAN CORPUSCULAR HGB CONC 29.6 g/dl (32.0-36.5); MEAN CORPUSCULAR VOLUME 81.4 fl (80.0-96.0); MONO # 0.9 10^3/uL (0.0-0.8); MONO % 6.4 % (2.0-8.0); NEUTROPHILS # 10.7 10^3/uL (1.5-8.5); NEUTROPHILS % 81.3 % (36.0-66.0); PLATELET COUNT, AUTOMATED 691 10^3/uL (150-450); WHITE BLOOD COUNT 13.2 10^3/uL (4.0-10.0)
[2023-11-23 09:19] LABS: ALBUMIN 2.4 G/DL (3.2-5.2); ALKALINE PHOSPHATASE 170 U/L (46-116); ALT/SGPT 13 U/L (7.0-40); AST/SGOT 18 U/L (<34); BILIRUBIN,TOTAL 0.2 MG/DL (0.3-1.2); BLOOD UREA NITROGEN 16 MG/DL (9-23); CALCIUM LEVEL 9.3 MG/DL (8.3-10.6); CARBON DIOXIDE LEVEL 27 MMOL/L (20-31); CHLORIDE LEVEL 102 MMOL/L (98-107); CREATININE FOR GFR 0.57 MG/DL (0.55-1.30); GLOMERULAR FILTRATION RATE > 60.0 (>32); GLUCOSE, FASTING 154 MG/DL (74-106); POTASSIUM SERUM 4.7 MMOL/L (3.5-5.1); SODIUM LEVEL 136 MMOL/L (136-145); TOTAL PROTEIN 6.5 G/DL (5.7-8.2)
[2023-11-24 04:19] VITALS: BP 123/64; TEMP 97.3; O2SAT 97
[2023-11-24 07:22] LABS: BASO # 0.1 10^3/uL (0.0-0.2); BASO % 0.6 % (0.0-1.0); EOS # 0.2 10^3/uL (0.0-0.5); EOS % 1.3 % (0.0-3.0); HEMATOCRIT 27.9 % (36.0-47.0); HEMOGLOBIN 8.2 g/dl (12.0-15.5); LYMPH # 2.3 10^3/uL (1.5-5.0); LYMPH % 17.9 % (24.0-44.0); MEAN CORPUSCULAR HEMOGLOBIN 23.8 pg (27.0-33.0); MEAN CORPUSCULAR HGB CONC 29.4 g/dl (32.0-36.5); MEAN CORPUSCULAR VOLUME 81.1 fl (80.0-96.0); MONO # 1.2 10^3/uL (0.0-0.8); MONO % 9.7 % (2.0-8.0); NEUTROPHILS # 8.8 10^3/uL (1.5-8.5); NEUTROPHILS % 69.9 % (36.0-66.0); PLATELET COUNT, AUTOMATED 628 10^3/uL (150-450); RED BLOOD COUNT 3.44 10^6/uL (4.00-5.40); WHITE BLOOD COUNT 12.6 10^3/uL (4.0-10.0)
[2023-11-24 07:57] LABS: ALBUMIN 2.1 G/DL (3.2-5.2); ALKALINE PHOSPHATASE 139 U/L (46-116); ALT/SGPT < 9 U/L (7.0-40); AST/SGOT 12 U/L (<34); BILIRUBIN,TOTAL 0.2 MG/DL (0.3-1.2); BLOOD UREA NITROGEN 19 MG/DL (9-23); CALCIUM LEVEL 9.1 MG/DL (8.3-10.6); CARBON DIOXIDE LEVEL 30 MMOL/L (20-31); CHLORIDE LEVEL 102 MMOL/L (98-107); CREATININE FOR GFR 0.57 MG/DL (0.55-1.30); GLOMERULAR FILTRATION RATE > 60.0 (>32); GLUCOSE, FASTING 92 MG/DL (74-106); POTASSIUM SERUM 4.4 MMOL/L (3.5-5.1); SODIUM LEVEL 137 MMOL/L (136-145); TOTAL PROTEIN 5.8 G/DL (5.7-8.2)
[2023-11-24] MEDS ORDERED: PANT20TA6 PO (11:00)
[2023-11-24] MEDS ORDERED: SENN-130 PO (11:02)
[2023-11-24] MEDS ORDERED: HOME MED LIST COMPLETE! XX SCH (11:55)
[2023-11-24 11:59] VITALS: BP 123/63; TEMP 97; O2SAT 91
[2023-11-24] MEDS: FENTANYL REMOVAL DOCUMENTATION MISC XX SCH (12:00)
[2023-11-24] MEDS: fentaNYL 75 MCG/HR PATCH TOP SCH (13:04)
[2023-11-24] MEDS: CLINDAMYCIN 300 MG in IV 1 EA IV SCH (18:23)
[2023-11-24 21:09] VITALS: BP 128/69; TEMP 97.5; O2SAT 91
[2023-11-25 05:29] VITALS: BP 121/61; TEMP 97.9; O2SAT 97
[2023-11-25 06:41] LABS: BASO # 0.1 10^3/uL (0.0-0.2); BASO % 0.8 % (0.0-1.0); EOS # 0.4 10^3/uL (0.0-0.5); EOS % 3.7 % (0.0-3.0); HEMATOCRIT 27.8 % (36.0-47.0); HEMOGLOBIN 8.1 g/dl (12.0-15.5); LYMPH # 3.1 10^3/uL (1.5-5.0); MEAN CORPUSCULAR HEMOGLOBIN 23.9 pg (27.0-33.0); MEAN CORPUSCULAR HGB CONC 29.1 g/dl (32.0-36.5); MONO % 8.9 % (2.0-8.0); NEUTROPHILS # 6.4 10^3/uL (1.5-8.5); NEUTROPHILS % 58.1 % (36.0-66.0); PLATELET COUNT, AUTOMATED 605 10^3/uL (150-450); RED BLOOD COUNT 3.39 10^6/uL (4.00-5.40); WHITE BLOOD COUNT 11.1 10^3/uL (4.0-10.0)
[2023-11-25 06:52] LABS: BLOOD UREA NITROGEN 17 MG/DL (9-23); CALCIUM LEVEL 8.8 MG/DL (8.3-10.6); CARBON DIOXIDE LEVEL 31 MMOL/L (20-31); CHLORIDE LEVEL 101 MMOL/L (98-107); CREATININE FOR GFR 0.54 MG/DL (0.55-1.30); GLOMERULAR FILTRATION RATE > 60.0 (>32); GLUCOSE, FASTING 93 MG/DL (74-106); POTASSIUM SERUM 4.1 MMOL/L (3.5-5.1); SODIUM LEVEL 137 MMOL/L (136-145)
[2023-11-25 12:45] VITALS: BP 125/63; TEMP 97.3; O2SAT 91
[2023-11-25 20:00] VITALS: BP 127/82; TEMP 97.2; O2SAT 94
[2023-11-25] MEDS: ONDANSETRON 4MG 2ML VIAL IV PRN (22:30)
[2023-11-25 23:00] VITALS: O2SAT 85
[2023-11-26] MEDS ORDERED: BISACODYL 10MG SUPP PR PRN (02:00)
[2023-11-26] MEDS ORDERED: SENNA 8.6 MG TAB (SENOKOT) PO PRN (02:00)
[2023-11-26] MEDS: MOM 30ML SUSPENSION UDC PO ONE (02:13)
[2023-11-26 04:00] VITALS: BP 119/63; TEMP 97.5; O2SAT 95
[2023-11-26] MEDS: MIRALAX *UNIT DOSE* 17GM PACKET PO SCH (08:42)
[2023-11-26 11:49] VITALS: BP 118/63; TEMP 97.2; O2SAT 95
[2023-11-26] MEDS: DULoxetine 30MG CAPSULE (CYMBALTA) PO SCH (11:50)
[2023-11-26 20:36] VITALS: BP 141/74; TEMP 97.4; O2SAT 99
[2023-11-26] MEDS: AMITRIPTYLINE 25MG TABLET PO SCH (20:45)
[2023-11-27 00:35] VITALS: BP 138/74
[2023-11-27 06:20] LABS: BASO # 0.1 10^3/uL (0.0-0.2); BASO % 0.8 % (0.0-1.0); EOS # 0.5 10^3/uL (0.0-0.5); EOS % 5.2 % (0.0-3.0); HEMATOCRIT 28.3 % (36.0-47.0); HEMOGLOBIN 8.2 g/dl (12.0-15.5); LYMPH # 2.2 10^3/uL (1.5-5.0); LYMPH % 24.5 % (24.0-44.0); MEAN CORPUSCULAR HEMOGLOBIN 23.7 pg (27.0-33.0); MEAN CORPUSCULAR VOLUME 81.8 fl (80.0-96.0); MONO # 0.9 10^3/uL (0.0-0.8); MONO % 9.6 % (2.0-8.0); NEUTROPHILS # 5.3 10^3/uL (1.5-8.5); NEUTROPHILS % 59.6 % (36.0-66.0); PLATELET COUNT, AUTOMATED 706 10^3/uL (150-450); RED BLOOD COUNT 3.46 10^6/uL (4.00-5.40); WHITE BLOOD COUNT 8.8 10^3/uL (4.0-10.0)
[2023-11-27 06:34] LABS: BLOOD UREA NITROGEN 18 MG/DL (9-23); CALCIUM LEVEL 9.7 MG/DL (8.3-10.6); CARBON DIOXIDE LEVEL 34 MMOL/L (20-31); CHLORIDE LEVEL 100 MMOL/L (98-107); CREATININE FOR GFR 0.54 MG/DL (0.55-1.30); GLOMERULAR FILTRATION RATE > 60.0 (>32); GLUCOSE, FASTING 101 MG/DL (74-106); POTASSIUM SERUM 4.9 MMOL/L (3.5-5.1); SODIUM LEVEL 138 MMOL/L (136-145)
[2023-11-27 08:44] LABS: IRON (FE) 14 UG/DL (50-170); PERCENT SATURATION 5.3 % (13.2-45.0); TOTAL IRON BINDING CAPACITY 264 UG/DL (250-425)
[2023-11-27 08:47] LABS: FERRITIN 38.6 NG/ML (7.3-270.7)
[2023-11-27 11:42] VITALS: BP 120/61; TEMP 97.3; O2SAT 90
[2023-11-27] MEDS: IRON SUCROSE 200 MG in NS 100 ML IV SCH (16:08)
[2023-11-27 19:30] VITALS: BP 116/65; TEMP 98.8; O2SAT 89
[2023-11-28 04:00] VITALS: BP 103/56; TEMP 97.4; O2SAT 96
[2023-11-28] MEDS ORDERED: FERR1TAB8 PO (10:48)
[2023-11-28] MEDS ORDERED: CLEO300C2 PO (10:48)
[2023-11-28] MEDS ORDERED: ASCO50TA PO (10:48)
[2023-11-28] MEDS ORDERED: ASPI81TAEC PO (10:48)
[2023-11-28] MEDS ORDERED: METO1TAB87 PO (10:48)
[2023-11-28 12:00] VITALS: BP 126/63; TEMP 97.5; O2SAT 97
[2023-11-28 13:19] VITALS: BP 115/61
[2023-11-28] MEDS: IRON SUCROSE 100MG 5ML VIAL IV SCH (15:57)
[2023-11-28 17:55] VITALS: BP 116/64
[2023-11-28 20:11] VITALS: BP 117/64; TEMP 97.3; O2SAT 90
[2023-11-28] MEDS: CLINDAMYCIN 150MG CAPSULE PO SCH (20:13)
[2023-11-28 20:39] VITALS: BP 119/65; TEMP 98.1; O2SAT 94
[2023-11-29 05:43] VITALS: BP 109/64; TEMP 97.9; O2SAT 95
[2023-11-29 07:49] LABS: BASO # 0.1 10^3/uL (0.0-0.2); BASO % 0.7 % (0.0-1.0); EOS # 0.7 10^3/uL (0.0-0.5); EOS % 6.3 % (0.0-3.0); HEMATOCRIT 26.9 % (36.0-47.0); HEMOGLOBIN 7.9 g/dl (12.0-15.5); LYMPH # 2.9 10^3/uL (1.5-5.0); LYMPH % 25.6 % (24.0-44.0); MEAN CORPUSCULAR HEMOGLOBIN 24.5 pg (27.0-33.0); MEAN CORPUSCULAR HGB CONC 29.4 g/dl (32.0-36.5); MEAN CORPUSCULAR VOLUME 83.3 fl (80.0-96.0); MONO % 9.2 % (2.0-8.0); NEUTROPHILS # 6.4 10^3/uL (1.5-8.5); PLATELET COUNT, AUTOMATED 671 10^3/uL (150-450); RED BLOOD COUNT 3.23 10^6/uL (4.00-5.40); WHITE BLOOD COUNT 11.2 10^3/uL (4.0-10.0)
[2023-11-29 08:17] LABS: BLOOD UREA NITROGEN 16 MG/DL (9-23); CALCIUM LEVEL 9.2 MG/DL (8.3-10.6); CARBON DIOXIDE LEVEL 35 MMOL/L (20-31); CHLORIDE LEVEL 100 MMOL/L (98-107); CREATININE FOR GFR 0.51 MG/DL (0.55-1.30); GLOMERULAR FILTRATION RATE > 60.0 (>32); GLUCOSE, FASTING 86 MG/DL (74-106); SODIUM LEVEL 137 MMOL/L (136-145)
[2023-11-29 08:37] VITALS: BP 108/53; O2SAT 97
[2023-11-29 12:00] VITALS: BP_SYST 125; BP_SYST 138; BP_DIAS 59; BP_DIAS 63; TEMP 97.3; O2SAT 98
[2023-11-29] MEDS: ENOXAPARIN 40MG/0.4ML SYRINGE (J1650 PER 10MG) SC SCH (13:40)
[2023-11-29 17:21] VITALS: BP 135/63
[2023-11-29] MEDS: PANTOPRAZOLE 20 MG TAB PO SCH (17:26)
[2023-11-30 04:36] VITALS: BP 112/71; TEMP 97.3; O2SAT 98
[2023-12-01 05:57] VITALS: BP 121/60; TEMP 97.5; O2SAT 91
[2023-12-01 06:20] LABS: ALKALINE PHOSPHATASE 142 U/L (46-116); ALT/SGPT 10 U/L (7.0-40); AST/SGOT 14 U/L (<34); BILIRUBIN,TOTAL 0.2 MG/DL (0.3-1.2); BLOOD UREA NITROGEN 16 MG/DL (9-23); CARBON DIOXIDE LEVEL 34 MMOL/L (20-31); CHLORIDE LEVEL 101 MMOL/L (98-107); CREATININE FOR GFR 0.57 MG/DL (0.55-1.30); GLOMERULAR FILTRATION RATE > 60.0 (>32); GLUCOSE, FASTING 87 MG/DL (74-106); POTASSIUM SERUM 4.9 MMOL/L (3.5-5.1); SODIUM LEVEL 138 MMOL/L (136-145); TOTAL PROTEIN 5.6 G/DL (5.7-8.2)
[2023-12-01 12:00] VITALS: BP 122/63
[2023-12-01] MEDS ORDERED: AMLO1TAB24 PO (12:35)
[2023-12-01] MEDS ORDERED: TRAM50TA2 PO (12:35)
== END 2023-12-01 13:40 | DRG 470 ==
LOC: M MS5PR 15:20 → OBSVTOIN 15:20
PROVIDERS: ADMIT Orthopaedic Surgery; ATTEND Internal Medicine
PROC: 0SRB0J9 Replacement of Left Hip Joint with Synthetic Substitute, Cemented, Open Approach (ICD-10-PCS; principal; 2023-11-22 14:25)
PROC: 0QP704Z Removal of Internal Fixation Device from Left Upper Femur, Open Approach (ICD-10-PCS; 2023-11-22 14:25)
DX: T84.195A Other mechanical complication of internal fixation device of left femur, initial encounter (principal); S72.002K Fracture of unspecified part of neck of left femur, subsequent encounter for closed fracture with nonunion; J98.11 Atelectasis; R26.89 Other abnormalities of gait and mobility; I10 Essential (primary) hypertension; K21.9 Gastro-esophageal reflux disease without esophagitis; K44.9 Diaphragmatic hernia without obstruction or gangrene; M54.9 Dorsalgia, unspecified; G89.29 Other chronic pain; E78.5 Hyperlipidemia, unspecified; E61.1 Iron deficiency; I16.0 Hypertensive urgency; F03.90 Unspecified dementia, unspecified severity, without behavioral disturbance, psychotic disturbance, mood disturbance, and anxiety; D64.9 Anemia, unspecified; Z79.899 Other long term (current) drug therapy; Z88.0 Allergy status to penicillin; Z88.8 Allergy status to other drugs, medicaments and biological substances; Z87.891 Personal history of nicotine dependence; Z86.73 Personal history of transient ischemic attack (TIA), and cerebral infarction without residual deficits; Z90.49 Acquired absence of other specified parts of digestive tract

== ENCOUNTER → 2023-12-05 | Outpatient (CLI) | payer OTHER ==
[~2023-12-05] MED LIST changes: +AMLO1TAB24 PO; +ASCO50TA PO; +ASPI81TAEC PO; +CLEO300C2 PO; +METO1TAB87 PO; +PANT20TA6 PO; +SENN-130 PO; +TRAM50TA2 PO
== END ==
LOC: M SOG 07:29
PROVIDERS: ATTEND Orthopaedic Surgery
DX: Z47.89 Encounter for other orthopedic aftercare (principal); Z53.9 Procedure and treatment not carried out, unspecified reason

== ENCOUNTER → 2023-12-12 | Outpatient (CLI) | payer OTHER | LOC: M SOG 07:29 | PROVIDERS: ATTEND Orthopaedic Surgery | DX: Z96.642 Presence of left artificial hip joint (principal); Z47.89 Encounter for other orthopedic aftercare ==

== ENCOUNTER 2024-01-29 13:47 | Emergency (ER) | payer OTHER ==
[~2024-01-29] VITALS: Ht 147.3 cm; Wt 57.0 kg
[2024-01-29] MEDS: MORPHINE 4 MG/ML 1ML VIAL IV PRN (14:44)
[2024-01-29] MEDS: NS 500 ML IV ONE (14:44)
[2024-01-29] MEDS: ONDANSETRON 4MG 2ML VIAL IV ONE (14:44)
[2024-01-29 14:54] LABS: BASO % 0.4 % (0.0-1.0); EOS # 0.1 10^3/uL (0.0-0.5); EOS % 1.3 % (0.0-3.0); HEMATOCRIT 38.5 % (36.0-47.0); HEMOGLOBIN 11.9 g/dl (12.0-15.5); LYMPH # 2.1 10^3/uL (1.5-5.0); LYMPH % 22.6 % (24.0-44.0); MEAN CORPUSCULAR HEMOGLOBIN 26.6 pg (27.0-33.0); MEAN CORPUSCULAR HGB CONC 30.9 g/dl (32.0-36.5); MEAN CORPUSCULAR VOLUME 85.9 fl (80.0-96.0); MONO # 0.6 10^3/uL (0.0-0.8); MONO % 6.1 % (2.0-8.0); NEUTROPHILS # 6.5 10^3/uL (1.5-8.5); NEUTROPHILS % 69.3 % (36.0-66.0); PLATELET COUNT, AUTOMATED 417 10^3/uL (150-450); RED BLOOD COUNT 4.48 10^6/uL (4.00-5.40); WHITE BLOOD COUNT 9.4 10^3/uL (4.0-10.0)
[2024-01-29] MEDS ORDERED: ISOVUE-370 76% 100ML VIAL As Ordered ONE (15:21)
[2024-01-29 16:19] LABS: LIPASE 25 U/L (12-53)
[2024-01-29 16:25] LABS: ALBUMIN 3.1 G/DL (3.2-5.2); ALKALINE PHOSPHATASE 92 U/L (35-104); ALT/SGPT 19 U/L (7.0-40); AST/SGOT 23 U/L (<34); BILIRUBIN,DIRECT < 0.1 MG/DL (<0.4); BILIRUBIN,TOTAL 0.2 MG/DL (0.3-1.2); BLOOD UREA NITROGEN 13 MG/DL (9-23); CALCIUM LEVEL 8.9 MG/DL (8.3-10.6); CARBON DIOXIDE LEVEL 29 MMOL/L (20-31); CHLORIDE LEVEL 101 MMOL/L (98-107); CREATININE FOR GFR 0.62 MG/DL (0.55-1.30); GLOMERULAR FILTRATION RATE > 60.0 (>32); GLUCOSE, FASTING 98 MG/DL (74-106); SODIUM LEVEL 134 MMOL/L (136-145); TOTAL PROTEIN 6.9 G/DL (5.7-8.2)
[2024-01-29] MEDS ORDERED: CIPR-249 PO (19:50)
[2024-01-29] MEDS ORDERED: METR-265 PO (19:50)
[2024-01-29] MEDS: LevoFLOXacin IV 750 MG in IV 1 EA IV ONE (20:18)
[2024-01-29] MEDS: metroNIDAZOLE 500 MG in IV 1 EA IV ONE (21:52)
[2024-01-29 23:03] VITALS: BP 166/76; TEMP 96.2; O2SAT 95
== END 2024-01-29 23:05 | disposition home or self-care (01) ==
LOC: M ED 13:47
DX: K57.32 Diverticulitis of large intestine without perforation or abscess without bleeding (principal); I10 Essential (primary) hypertension; K21.9 Gastro-esophageal reflux disease without esophagitis; E78.5 Hyperlipidemia, unspecified; E61.1 Iron deficiency; Z90.49 Acquired absence of other specified parts of digestive tract; Z79.899 Other long term (current) drug therapy; Z88.0 Allergy status to penicillin; Z88.8 Allergy status to other drugs, medicaments and biological substances
CPT/HCPCS: 74177; 80047; 80048; 80076; 83605; 83690; 85025; 93005; 93041; 96361; 96365; 96366; 96367; 96375; 96376; 99285; J1836; J1956; J2405; Q9967

== ENCOUNTER → 2024-02-16 | Outpatient (CLI) | payer OTHER | LOC: M SOG 08:57 | PROVIDERS: ATTEND Orthopaedic Surgery | DX: Z53.9 Procedure and treatment not carried out, unspecified reason (principal) ==

== ENCOUNTER → 2024-12-11 | Outpatient (CLI) | payer MEDICARE ==
[2024-12-11 18:55] LABS: BASO # 0.1 10^3/uL (0.0-0.2); BASO % 0.7 % (0.0-1.0); EOS # 0.2 10^3/uL (0.0-0.5); EOS % 2.0 % (0.0-3.0); LYMPH # 4.8 10^3/uL (1.5-5.0); LYMPH % 42.7 % (24.0-44.0); MONO # 0.8 10^3/uL (0.0-0.8); MONO % 6.9 % (2.0-8.0); NEUTROPHILS # 5.3 10^3/uL (1.5-8.5); NEUTROPHILS % 47.3 % (36.0-66.0); PLATELET COUNT, AUTOMATED 464 10^3/uL (150-450)
[2024-12-11 19:00] LABS: IRON (FE) 36.0 UG/DL (50-170)
[2024-12-11 19:01] LABS: ALT/SGPT 15.0 U/L (7.0-40); AST/SGOT 21.0 U/L (<34); CALCIUM LEVEL 9.8 MG/DL (8.3-10.6); CARBON DIOXIDE LEVEL 30.0 MMOL/L (20-31); CHLORIDE LEVEL 102.0 MMOL/L (98-107); CREATININE FOR GFR 0.76 MG/DL (0.55-1.30); GLOMERULAR FILTRATION RATE 77.7 (>32); PERCENT SATURATION 8.5 % (13.2-45.0); POTASSIUM SERUM 4.2 MMOL/L (3.5-5.1); SODIUM LEVEL 142.0 MMOL/L (136-145)
[2024-12-11 19:03] LABS: VITAMIN B12 LEVEL 434.0 PG/ML (211-911)
== END ==
LOC: M WUC 13:29
PROVIDERS: ATTEND Family Medicine
DX: D64.9 Anemia, unspecified (principal)

== ENCOUNTER 2025-01-04 16:53 | Emergency (ER) | payer MEDICARE ==
[~2025-01-04] VITALS: Ht 152.4 cm; Wt 61.4 kg
[2025-01-04 18:10] LABS: BASO # 0.1 10^3/uL (0.0-0.2); BASO % 0.5 % (0.0-1.0); EOS # 0.2 10^3/uL (0.0-0.5); EOS % 1.6 % (0.0-3.0); LYMPH # 2.8 10^3/uL (1.5-5.0); LYMPH % 30.8 % (24.0-44.0); MONO # 0.6 10^3/uL (0.0-0.8); MONO % 6.8 % (2.0-8.0); NEUTROPHILS # 5.5 10^3/uL (1.5-8.5); NEUTROPHILS % 60.0 % (36.0-66.0); PLATELET COUNT, AUTOMATED 433 10^3/uL (150-450)
[2025-01-04 18:35] LABS: ALT/SGPT 20 U/L (7.0-40); AST/SGOT 40 U/L (<34); CALCIUM LEVEL 9.7 MG/DL (8.3-10.6); CARBON DIOXIDE LEVEL 25 MMOL/L (20-31); CHLORIDE LEVEL 102 MMOL/L (98-107); CREATININE FOR GFR 0.68 MG/DL (0.55-1.30); GLOMERULAR FILTRATION RATE 86.4 (>32); POTASSIUM SERUM 5.0 MMOL/L (3.5-5.1); SODIUM LEVEL 139 MMOL/L (136-145)
[2025-01-04] MEDS: NS (Normal Saline) 0.9% 1,000 ML IV SCH (18:44)
[2025-01-04] MEDS: PANTOPRAZOLE 40MG VIAL IV ONE (18:44)
[2025-01-04] MEDS: MORPHINE 4 MG/ML 1 ML VIAL IV ONE ×2 (18:46→20:51)
[2025-01-04] MEDS: GASTROGRAFIN SOLUTION 30ML PO SCH (19:24)
[2025-01-04 20:38] LABS: KETONE, URINE AUTO RFX NEGATIVE (NEGATIVE); MUCUS, URINE RFX SMALL (NEGATIVE); NITRITE, URINE AUTO RFX NEGATIVE (NEGATIVE); RBC, URINE AUTO RFX 7 /HPF (0-3); SQUAM EPITHELIAL CELL UR AURFX 1 /HPF (0-6); WBC, URINE AUTO RFX 6 /HPF (0-3)
[2025-01-04 20:41] LABS: LEUKOCYTE ESTERASE UR AUTO RFX 1+ (NEGATIVE)
[2025-01-04] MEDS ORDERED: ISOVUE-370 76% 100 ML VIAL As Ordered ONE (20:45)
[2025-01-04] MEDS ORDERED: PERC5TAB12 PO (22:52)
[2025-01-04 23:13] VITALS: BP 183/88; TEMP 97.9; O2SAT 95
== END 2025-01-04 23:37 | disposition home or self-care (01) ==
LOC: M ED 16:53
DX: K52.9 Noninfective gastroenteritis and colitis, unspecified (principal); I10 Essential (primary) hypertension; K21.9 Gastro-esophageal reflux disease without esophagitis; J44.9 Chronic obstructive pulmonary disease, unspecified; D50.9 Iron deficiency anemia, unspecified; F41.9 Anxiety disorder, unspecified; F32.A Depression, unspecified; Z87.442 Personal history of urinary calculi; Z86.73 Personal history of transient ischemic attack (TIA), and cerebral infarction without residual deficits; Z79.899 Other long term (current) drug therapy; Z88.0 Allergy status to penicillin; Z88.8 Allergy status to other drugs, medicaments and biological substances
CPT/HCPCS: 51701; 74177; 80048; 80076; 81001; 83605; 83690; 84132; 85025; 87086; 93041; 96361; 96374; 96375; 96376; 99285; J2470; Q9963; Q9967

== ENCOUNTER 2025-02-09 09:42 | Emergency (ER) | payer MEDICARE ==
[~2025-02-09] VITALS: Ht 152.4 cm; Wt 60.9 kg
[~2025-02-09 09:42] MED LIST changes: +PERC5TAB12 PO
[2025-02-09 10:53] LABS: BASO # 0.1 10^3/uL (0.0-0.2); BASO % 0.5 % (0.0-1.0); EOS # 0.0 10^3/uL (0.0-0.5); EOS % 0.3 % (0.0-3.0); LYMPH # 1.8 10^3/uL (1.5-5.0); LYMPH % 18.1 % (24.0-44.0); MONO # 0.7 10^3/uL (0.0-0.8); MONO % 6.5 % (2.0-8.0); NEUTROPHILS # 7.4 10^3/uL (1.5-8.5); NEUTROPHILS % 74.2 % (36.0-66.0); PLATELET COUNT, AUTOMATED 363 10^3/uL (150-450)
[2025-02-09 11:19] LABS: INR 0.98
[2025-02-09 11:28] LABS: ALT/SGPT 13 U/L (7.0-40); AST/SGOT 25 U/L (<34); CALCIUM LEVEL 9.6 MG/DL (8.3-10.6); CARBON DIOXIDE LEVEL 28 MMOL/L (20-31); CHLORIDE LEVEL 101 MMOL/L (98-107); CREATININE FOR GFR 0.71 MG/DL (0.55-1.30); GLOMERULAR FILTRATION RATE 84.3 (>32); POTASSIUM SERUM 4.1 MMOL/L (3.5-5.1); SODIUM LEVEL 139 MMOL/L (136-145)
[2025-02-09] MEDS ORDERED: ISOVUE-370 76% 100 ML VIAL As Ordered ONE (11:29)
[2025-02-09] MEDS: ONDANSETRON 4MG/2ML VIAL IV ONE (11:29)
[2025-02-09 13:24] LABS: KETONE, URINE AUTO RFX NEGATIVE (NEGATIVE); MUCUS, URINE RFX SMALL (NEGATIVE); NITRITE, URINE AUTO RFX NEGATIVE (NEGATIVE); RBC, URINE AUTO RFX 10 /HPF (0-3); SQUAM EPITHELIAL CELL UR AURFX 0 /HPF (0-6); WBC, URINE AUTO RFX 6 /HPF (0-3)
[2025-02-09 13:27] LABS: LEUKOCYTE ESTERASE UR AUTO RFX TRACE (NEGATIVE)
[2025-02-09] MEDS: FLEET OIL RETENTION ENEMA PR ONE (14:08)
[2025-02-09] MEDS ORDERED: MIRA3350 PO (15:56)
[2025-02-09 16:47] VITALS: BP 170/90; TEMP 98; O2SAT 95
== END 2025-02-09 16:51 | disposition home or self-care (01) ==
LOC: M ED 09:42
DX: K59.00 Constipation, unspecified (principal); I10 Essential (primary) hypertension; K21.9 Gastro-esophageal reflux disease without esophagitis; K57.92 Diverticulitis of intestine, part unspecified, without perforation or abscess without bleeding; E78.5 Hyperlipidemia, unspecified; D50.9 Iron deficiency anemia, unspecified; Z86.73 Personal history of transient ischemic attack (TIA), and cerebral infarction without residual deficits; Z87.442 Personal history of urinary calculi; Z79.899 Other long term (current) drug therapy; Z88.0 Allergy status to penicillin; Z88.8 Allergy status to other drugs, medicaments and biological substances
CPT/HCPCS: 74177; 80047; 80048; 80076; 81001; 82150; 83605; 83690; 85025; 85610; 85730; 87086; 93041; 96374; 96375; 99284; J2405; J3010; Q9967